=== PATIENT | male | born 1950 | race Caucasian/White ===

== ENCOUNTER 2022-11-09 22:56 | Emergency (ER) | payer MEDICARE, SELFPAY ==
[2022-11-09 23:05] VITALS: BP 165/74; PULSE 88; O2SAT 96
[2022-11-09 23:13] VITALS: BP 165/74; PULSE 83; RESP 16; TEMP 36.8; O2SAT 97; BMI 38.6
--- NOTE | 2022-11-09 23:26 | DI.RAD.S_ITS ---
PROCEDURE: XR CHEST 1V INDICATIONS: chest pain TECHNIQUE: One view of the chest was acquired. COMPARISON: None. FINDINGS: Surgical changes and devices: None. Lungs and pleura: There are confluent right infrahilar opacities consistent with consolidation. Medial left retrocardiac opacities are also demonstrated consistent with atelectasis or consolidation. No pleural effusions or pneumothorax. Mediastinum: Mediastinal contours appear normal. Heart size is normal. Bones and chest wall: No suspicious bony lesions. Overlying soft tissues appear unremarkable. IMPRESSION: 1. Right infrahilar consolidation is nonspecific but suggestive of pneumonia. 2. Left retrocardiac atelectasis or consolidation. Dictated by: Julius Zhou M.D. on 11/10/2022 at 0:23 Approved by: Julius Zhou M.D. on 11/10/2022 at 0:24
--- NOTE | 2022-11-09 23:30 | ED_ITS ---
HPI - Weakness <Kyleigh Moise DO - Last Filed: 11/15/22 01:32> General Chief complaint: Arrhythmia/Palpitations Stated complaint: Nosebleeds, lethargic, slurred speech x6 weeks Time Seen by Provider: 11/09/22 23:30 Source: patient and family Mode of arrival: Ambulatory History of Present Illness HPI Narrative: Patient is 72-year-old male history of diabetes hypertension BPH presenting today with weakness. He was at a [facility] today for mother's day his daughter saw him for the 1st time in 6 months thinks that he is age 20 years since [place]. He reports a variety of symptoms ongoing for number of months. He reports frequent nosebleeds increased weakness. He has some dizziness whenever he stands up, there has been significant weight gain according to daughter he has couple areas of his skin that are pruritic reports that he has a cream he puts on there and it helps. He recently started Flomax for BPH. He denies any significant peripheral edema. He is no chest pain or palpitations. Daughter reports that he has slurring words I do not appreciate any significant aphasia or dysarthria he has no obvious facial droop. He is generalized weakness without focal deficits. Related Data Allergies Allergy/AdvReac Type Severity Reaction Status Date / Time Penicillins Allergy Intermediate Rash Verified 11/10/22 00:47 Review of Systems <DO Tanna Miller Last Filed: 11/15/22 01:32> Review of Systems ROS Unobtainable: All systems reviewed & are unremarkable except as noted in HPI and below Patient History <DO Tanna Miller Last Filed: 11/15/22 01:32> Social History Smoking Status: Former smoker Smoking Status: Former smoker Substance Use Type: does not use Exam <DO Tanna Miller Last Filed: 11/15/22 01:32> Initial Vital Signs Initial Vital Signs: Vital Signs Pulse Rate 88 11/09/22 23:05 Blood Pressure 165/74 H 11/09/22 23:05 Pulse Oximetry 96 11/09/22 23:05 GENERAL: Alert 72-year-old male HEENT: Head atraumatic,EOMI, pupils reactive, face symmetric, [moist] mucous membranes CARDIOVASCULAR: Regular rate and rhythm without murmurs, rubs or gallops. RESPIRATORY: Breath sounds equal bilaterally, no wheezes rales or rhonchi. ABDOMEN: Soft, nontender. Normoactive bowel sounds all 4 quadrants. No guarding or rebound. EXTREMITIES: Normal range of motion, no clubbing or edema. Neurovascularly intact NEUROLOGICAL: Alert and oriented x4.Normal gait and speech. Cranial nerves II through XII grossly intact. [Good [id number], good [id number], strength equal bilaterally, no dysarthria or aphasia, sensation in tact to soft touch bilaterally, no visual changes, no facial droop] SKIN: Warm, dry, no laceration, no petechiae, no rashes or lesions. <Dmitriy Jimenez DO - Last Filed: 11/10/22 18:24> Initial Vital Signs Initial Vital Signs: Vital Signs Pulse Rate 88 11/09/22 23:05 Blood Pressure 165/74 H 11/09/22 23:05 Pulse Oximetry 96 11/09/22 23:05 Course <Kyleigh Moise DO - Last Filed: 11/15/22 01:32> Orders Ordered: Discontinued Medications Aspirin (Aspirin 81 Mg Chew Tab) 324 mg PO NOW ONE Stop: 11/09/22 23:27 Last Admin: 11/09/22 23:55 Dose: Not Given Documented By: PINKY Aspirin (Aspirin 81 Mg Chew Tab) 324 mg PO NOW ONE Stop: 11/10/22 01:50 Last Admin: 11/10/22 02:36 Dose: 324 mg Documented By: BRENT Amiodarone HCl/Dextrose (Nexterone) 360 mg in 200 mls @ 33.333 mls/hr IV NOW ONE; Protocol Stop: 11/10/22 07:39 Last Titration: 11/10/22 08:20 Dose: 0 mls/hr, 0 mls/hr Documented By: Admin: 11/10/22 02:36 Dose: 33.333 mls/hr, 33.33 mls/hr Documented By: BRENT Amiodarone HCl/Dextrose (Nexterone) 150 mg in 100 mls @ 600 mls/hr IV NOW ONE; Protocol Stop: 11/10/22 01:50 Last Infusion: 11/10/22 02:37 Dose: 0 mls/hr Documented By: Admin: 11/10/22 02:24 Dose: 600 mls/hr Documented By: BRENT Amiodarone HCl/Dextrose (Nexterone) 360 mg in 200 mls @ 16.7 mls/hr IV CONT EYAL; Protocol Stop: 11/10/22 20:29 Last Titration: 11/10/22 19:19 Dose: 16.7 mls/hr, 16.7 mls/hr Documented By: Admin: 11/10/22 08:51 Dose: 16.7 mls/hr, 16.7 mls/hr Documented By: RB Amiodarone HCl/Dextrose (Nexterone) 180 mg in 100 mls @ 16.7 mls/hr IV CONT EYAL; Protocol Stop: 11/11/22 01:00 Last Infusion: 11/10/22 19:17 Dose: 0 mls/hr Documented By: Admin: 11/10/22 19:17 Dose: 16.7 mls/hr Documented By: GERALD Metoprolol Succinate (Metoprolol Er 25 Mg Tablet) 25 mg PO NOW ONE Stop: 11/10/22 01:54 Last Admin: 11/10/22 02:33 Dose: 25 mg Documented By: BRENT Metoprolol Succinate (Metoprolol Er 25 Mg Tablet) 25 mg PO BID EYAL Last Admin: 11/10/22 10:03 Dose: Not Given Documented By: GERALD Metoprolol Tartrate (Metoprolol Tartrate 5 Mg/5 Ml Inj) 5 mg IV NOW ONE Stop: 11/10/22 01:43 Last Admin: 11/10/22 01:52 Dose: 5 mg Documented By: BRENT Vital Signs Vital signs: Vital Signs - 8 hr 11/10/22 10:30 11/10/22 10:30 11/10/22 10:45 Pulse Rate 60 Respiratory Rate 19 Blood Pressure 126/67 136/64 Pulse Oximetry 97 11/10/22 10:45 11/10/22 11:00 11/10/22 11:00 Pulse Rate 61 59 L Respiratory Rate 15 Blood Pressure 157/74 H Pulse Oximetry 96 97 11/10/22 11:15 11/10/22 11:15 11/10/22 11:30 Pulse Rate 59 L Respiratory Rate 19 Blood Pressure 149/66 H 149/83 H Pulse Oximetry 95 11/10/22 11:30 11/10/22 11:45 11/10/22 11:45 Pulse Rate 61 59 L Respiratory Rate 18 13 Blood Pressure 154/74 H Pulse Oximetry 97 97 11/10/22 12:00 11/10/22 12:01 11/10/22 12:01 Pulse Rate 66 64 Respiratory Rate 23 21 Blood Pressure 157/72 H Pulse Oximetry 97 97 11/10/22 12:15 11/10/22 12:15 11/10/22 12:30 Pulse Rate 59 L Respiratory Rate 15 Blood Pressure 150/65 H 156/74 H Pulse Oximetry 95 11/10/22 12:30 11/10/22 12:45 11/10/22 13:00 Pulse Rate 64 65 60 Respiratory Rate 13 18 14 Blood Pressure Pulse Oximetry 95 95 95 11/10/22 13:15 11/10/22 13:30 11/10/22 13:45 Pulse Rate 62 60 62 Respiratory Rate 11 L 11 L 12 Blood Pressure Pulse Oximetry 94 94 94 11/10/22 14:00 11/10/22 14:15 11/10/22 14:30 Pulse Rate 63 65 63 Respiratory Rate 12 12 12 Blood Pressure Pulse Oximetry 93 93 94 11/10/22 14:45 11/10/22 15:00 11/10/22 15:15 Pulse Rate 63 64 63 Respiratory Rate 16 20 Blood Pressure Pulse Oximetry 95 95 95 11/10/22 15:30 11/10/22 15:45 11/10/22 16:00 Pulse Rate 68 62 63 Respiratory Rate 20 17 16 Blood Pressure Pulse Oximetry 96 95 94 11/10/22 16:15 11/10/22 16:30 11/10/22 16:45 Pulse Rate 63 68 64 Respiratory Rate 22 13 Blood Pressure Pulse Oximetry 95 96 95 11/10/22 17:00 11/10/22 17:15 11/10/22 17:30 Pulse Rate 67 72 65 Respiratory Rate 12 21 17 Blood Pressure Pulse Oximetry 94 95 94 11/10/22 17:45 11/10/22 18:00 Pulse Rate 65 66 Respiratory Rate 21 17 Blood Pressure Pulse Oximetry 95 94 <Dmitriy Jimenez DO - Last Filed: 11/10/22 18:24> Orders Ordered: Discontinued Medications Aspirin (Aspirin 81 Mg Chew Tab) 324 mg PO NOW ONE Stop: 11/09/22 23:27 Last Admin: 11/09/22 23:55 Dose: Not Given Documented By: SB Aspirin (Aspirin 81 Mg Chew Tab) 324 mg PO NOW ONE Stop: 11/10/22 01:50 Last Admin: 11/10/22 02:36 Dose: 324 mg Documented By: BRENT Amiodarone HCl/Dextrose (Nexterone) 360 mg in 200 mls @ 33.333 mls/hr IV NOW ONE; Protocol Stop: 11/10/22 07:39 Last Titration: 11/10/22 08:20 Dose: 0 mls/hr, 0 mls/hr Documented By: Admin: 11/10/22 02:36 Dose: 33.333 mls/hr, 33.33 mls/hr Documented By: BRENT Amiodarone HCl/Dextrose (Nexterone) 150 mg in 100 mls @ 600 mls/hr IV NOW ONE; Protocol Stop: 11/10/22 01:50 Last Infusion: 11/10/22 02:37 Dose: 0 mls/hr Documented By: Admin: 11/10/22 02:24 Dose: 600 mls/hr Documented By: BRENT Amiodarone HCl/Dextrose (Nexterone) 360 mg in 200 mls @ 16.7 mls/hr IV CONT EYAL ; Protocol Stop: 11/10/22 20:29 Last Titration: 11/10/22 19:19 Dose: 16.7 mls/hr, 16.7 mls/hr Documented By: Admin: 11/10/22 08:51 Dose: 16.7 mls/hr, 16.7 mls/hr Documented By: RB Amiodarone HCl/Dextrose (Nexterone) 180 mg in 100 mls @ 16.7 mls/hr IV CONT EYAL; Protocol Stop: 11/11/22 01:00 Last Infusion: 11/10/22 19:17 Dose: 0 mls/hr Documented By: Admin: 11/10/22 19:17 Dose: 16.7 mls/hr Documented By: RB Metoprolol Succinate (Metoprolol Er 25 Mg Tablet) 25 mg PO NOW ONE Stop: 11/10/22 01:54 Last Admin: 11/10/22 02:33 Dose: 25 mg Documented By: BRENT Metoprolol Succinate (Metoprolol Er 25 Mg Tablet) 25 mg PO BID EYAL Last Admin: 11/10/22 10:03 Dose: Not Given Documented By: RB Metoprolol Tartrate (Metoprolol Tartrate 5 Mg/5 Ml Inj) 5 mg IV NOW ONE Stop: 11/10/22 01:43 Last Admin: 11/10/22 01:52 Dose: 5 mg Documented By: ADIAG Vital Signs Vital signs: Vital Signs - 8 hr 11/10/22 10:30 11/10/22 10:30 11/10/22 10:45 Pulse Rate 60 Respiratory Rate 19 Blood Pressure 126/67 136/64 Pulse Oximetry 97 11/10/22 10:45 11/10/22 11:00 11/10/22 11:00 Pulse Rate 61 59 L Respiratory Rate 15 Blood Pressure 157/74 H Pulse Oximetry 96 97 11/10/22 11:15 11/10/22 11:15 11/10/22 11:30 Pulse Rate 59 L Respiratory Rate 19 Blood Pressure 149/66 H 149/83 H Pulse Oximetry 95 11/10/22 11:30 11/10/22 11:45 11/10/22 11:45 Pulse Rate 61 59 L Respiratory Rate 18 13 Blood Pressure 154/74 H Pulse Oximetry 97 97 11/10/22 12:00 11/10/22 12:01 11/10/22 12:01 Pulse Rate 66 64 Respiratory Rate 23 21 Blood Pressure 157/72 H Pulse Oximetry 97 97 11/10/22 12:15 11/10/22 12:15 11/10/22 12:30 Pulse Rate 59 L Respiratory Rate 15 Blood Pressure 150/65 H 156/74 H Pulse Oximetry 95 11/10/22 12:30 11/10/22 12:45 11/10/22 13:00 Pulse Rate 64 65 60 Respiratory Rate 13 18 14 Blood Pressure Pulse Oximetry 95 95 95 11/10/22 13:15 11/10/22 13:30 11/10/22 13:45 Pulse Rate 62 60 62 Respiratory Rate 11 L 11 L 12 Blood Pressure Pulse Oximetry 94 94 94 11/10/22 14:00 11/10/22 14:15 11/10/22 14:30 Pulse Rate 63 65 63 Respiratory Rate 12 12 12 Blood Pressure Pulse Oximetry 93 93 94 11/10/22 14:45 11/10/22 15:00 11/10/22 15:15 Pulse Rate 63 64 63 Respiratory Rate 16 20 Blood Pressure Pulse Oximetry 95 95 95 11/10/22 15:30 11/10/22 15:45 11/10/22 16:00 Pulse Rate 68 62 63 Respiratory Rate 20 17 16 Blood Pressure Pulse Oximetry 96 95 94 11/10/22 16:15 11/10/22 16:30 11/10/22 16:45 Pulse Rate 63 68 64 Respiratory Rate 22 13 Blood Pressure Pulse Oximetry 95 96 95 11/10/22 17:00 11/10/22 17:15 11/10/22 17:30 Pulse Rate 67 72 65 Respiratory Rate 12 21 17 Blood Pressure Pulse Oximetry 94 95 94 11/10/22 17:45 11/10/22 18:00 Pulse Rate 65 66 Respiratory Rate 21 17 Blood Pressure Pulse Oximetry 95 94 [facility] - Weakness <Kyleigh Moise, - Last Filed: 11/15/22 01:32> Lab Data 11/09/22 23:40 11/09/22 23:40 Labs: Lab Results 11/09/22 11/09/22 11/09/22 Range/Units 23:40 23:40 23:40 WBC 4.5 (4.5-11.0) X10^3/uL RBC 3.51 L (4.5-5.9) X10^6/uL Hgb 11.6 L (13.5-17.5) g/dL Hct 33.0 L (41-53) % MCV 94.1 (80-100) fL MCH 32.9 (26-34) PG MCHC 35.0 (30-36) % RDW 16.8 H (11.6-14.8) % Plt Count 128 L (150-400) X10^3/uL Neut % (Auto) 58.0 (50-75) % Lymph % (Auto) 28.3 (25-40) % Arthur % (Auto) 6.9 (3-14) % Eos % (Auto) 5.4 H (2-4) % Baso % (Auto) 1.4 (0-2) % Neut # (Auto) 2600 (6502-5785) /uL Lymph # (Auto) 1300 (1041-1559) /uL Arthur # (Auto) 300 (0-900) /uL Eos # (Auto) 200 (0-450) /uL Baso # (Auto) 100 (0-100) /uL PT 13.4 H (10.1-12.7) SECONDS INR 1.2 (0.9-1.3) APTT 36 (26-36) SECONDS Sodium 137 (137-145) mmol/L Potassium 3.6 (3.4-5.1) mmol/L Chloride 106 (98-107) mmol/L Carbon Dioxide 24 (22-32) mmol/L BUN 16 (9-20) mg/dL Creatinine 0.84 (0.66-1.25) mg/dL Estimated GFR > 60 (>60) mL/min BUN/Creatinine Ratio 19.0 (6-22) Glucose 170 H (80-110) mg/dL Lactate (0.7-2.1) mmol/L Calcium 10.1 (8.4-10.2) mg/dL Magnesium 2.1 (1.6-2.3) mg/dL Total Bilirubin 1.0 (0.2-1.3) mg/dL AST 106 H (17-59) IU/L ALT 56 H (<50) IU/L Alkaline Phosphatase 196 H (38-126) U/L Total Creatine Kinase 229 H (55-170) U/L CK-MB (CK-2) 3.24 H (<2.37) ng/mL CK-MB (CK-2) Rel Index 1.4 L (1.5-5.0) % Troponin I 0.015 (0.01-0.034) ng/mL NT-Pro-B Natriuret Pep (<125) pg/mL Total Protein 6.8 (6.3-8.2) g/dL Albumin 3.5 (3.5-5.0) g/dL Globulin 3.3 (1.7-4.1) g/dL Albumin/Globulin Ratio 1.1 (1.0-2.8) Lipase 384 H (23-300) U/L Procalcitonin (<0.5) ng/mL TSH (0.47-4.68) uIU/mL U Opiates 300ng/mL cut (Negative) Ur Oxycodone Screen (Negative) Urine Methadone Screen (Negative) Ur Barbiturates Screen (Negative) U Tricyclic Antidepress (Negative) Ur Phencyclidine Scrn (Negative) Ur Amphetamines Screen (Negative) U Methamphetamines Scrn (Negative) Ur MDMA Scrn (Ecstasy) (Negative) U Benzodiazepines Scrn (Negative) Urine Cocaine Screen (Negative) U Marijuana (THC) Screen (Negative) Ethyl Alcohol ( - 10) mg/dL SARS-CoV-2 (PCR) (Negative) 11/09/22 11/09/22 11/09/22 Range/Units 23:40 23:40 23:40 WBC (4.5-11.0) X10^3/uL RBC (4.5-5.9) X10^6/uL Hgb (13.5-17.5) g/dL Hct (41-53) % MCV (80-100) fL MCH (26-34) PG MCHC (30-36) % RDW (11.6-14.8) % Plt Count (150-400) X10^3/uL Neut % (Auto) (50-75) % Lymph % (Auto) (25-40) % Arthur % (Auto) (3-14) % Eos % (Auto) (2-4) % Baso % (Auto) (0-2) % Neut # (Auto) (6415-2227) /uL Lymph # (Auto) (3939-3205) /uL Arthur # (Auto) (0-900) /uL Eos # (Auto) (0-450) /uL Baso # (Auto) (0-100) /uL PT (10.1-12.7) SECONDS INR (0.9-1.3) APTT (26-36) SECONDS Sodium (137-145) mmol/L Potassium (3.4-5.1) mmol/L Chloride (98-107) mmol/L Carbon Dioxide (22-32) mmol/L BUN (9-20) mg/dL Creatinine (0.66-1.25) mg/dL Estimated GFR (>60) mL/min BUN/Creatinine Ratio (6-22) Glucose (80-110) mg/dL Lactate 2.1 (0.7-2.1) mmol/L Calcium (8.4-10.2) mg/dL Magnesium (1.6-2.3) mg/dL Total Bilirubin (0.2-1.3) mg/dL AST (17-59) IU/L ALT (<50) IU/L Alkaline Phosphatase (38-126) U/L Total Creatine Kinase (55-170) U/L CK-MB (CK-2) (<2.37) ng/mL CK-MB (CK-2) Rel Index (1.5-5.0) % Troponin I (0.01-0.034) ng/mL NT-Pro-B Natriuret Pep 27 (<125) pg/mL Total Protein (6.3-8.2) g/dL Albumin (3.5-5.0) g/dL Globulin (1.7-4.1) g/dL Albumin/Globulin Ratio (1.0-2.8) Lipase (23-300) U/L Procalcitonin 0.13 (<0.5) ng/mL TSH (0.47-4.68) uIU/mL U Opiates 300ng/mL cut (Negative) Ur Oxycodone Screen (Negative) Urine Methadone Screen (Negative) Ur Barbiturates Screen (Negative) U Tricyclic Antidepress (Negative) Ur Phencyclidine Scrn (Negative) Ur Amphetamines Screen (Negative) U Methamphetamines Scrn (Negative) Ur MDMA Scrn (Ecstasy) (Negative) U Benzodiazepines Scrn (Negative) Urine Cocaine Screen (Negative) U Marijuana (THC) Screen (Negative) Ethyl Alcohol < 10 ( - 10) mg/dL SARS-CoV-2 (PCR) (Negative) 11/09/22 11/10/22 11/10/22 Range/Units 23:40 00:10 01:01 WBC (4.5-11.0) X10^3/uL RBC (4.5-5.9) X10^6/uL Hgb (13.5-17.5) g/dL Hct (41-53) % MCV (80-100) fL MCH (26-34) PG MCHC (30-36) % RDW (11.6-14.8) % Plt Count (150-400) X10^3/uL Neut % (Auto) (50-75) % Lymph % (Auto) (25-40) % Arthur % (Auto) (3-14) % Eos % (Auto) (2-4) % Baso % (Auto) (0-2) % Neut # (Auto) (1649-1065) /uL Lymph # (Auto) (8405-1033) /uL Arthur # (Auto) (0-900) /uL Eos # (Auto) (0-450) /uL Baso # (Auto) (0-100) /uL PT (10.1-12.7) SECONDS INR (0.9-1.3) APTT (26-36) SECONDS Sodium (137-145) mmol/L Potassium (3.4-5.1) mmol/L Chloride (98-107) mmol/L Carbon Dioxide (22-32) mmol/L BUN (9-20) mg/dL Creatinine (0.66-1.25) mg/dL Estimated GFR (>60) mL/min BUN/Creatinine Ratio (6-22) Glucose (80-110) mg/dL Lactate (0.7-2.1) mmol/L Calcium (8.4-10.2) mg/dL Magnesium (1.6-2.3) mg/dL Total Bilirubin (0.2-1.3) mg/dL AST (17-59) IU/L ALT (<50) IU/L Alkaline Phosphatase (38-126) U/L Total Creatine Kinase (55-170) U/L CK-MB (CK-2) (<2.37) ng/mL CK-MB (CK-2) Rel Index (1.5-5.0) % Troponin I (0.01-0.034) ng/mL NT-Pro-B Natriuret Pep (<125) pg/mL Total Protein (6.3-8.2) g/dL Albumin (3.5-5.0) g/dL Globulin (1.7-4.1) g/dL Albumin/Globulin Ratio (1.0-2.8) Lipase (23-300) U/L Procalcitonin (<0.5) ng/mL TSH 1.49 (0.47-4.68) uIU/mL U Opiates 300ng/mL cut Negative (Negative) Ur Oxycodone Screen Negative (Negative) Urine Methadone Screen Negative (Negative) Ur Barbiturates Screen Negative (Negative) U Tricyclic Antidepress Positive H (Negative) Ur Phencyclidine Scrn Negative (Negative) Ur Amphetamines Screen Negative (Negative) U Methamphetamines Scrn Negative (Negative) Ur MDMA Scrn (Ecstasy) Negative (Negative) U Benzodiazepines Scrn Negative (Negative) Urine Cocaine Screen Negative (Negative) U Marijuana (THC) Screen Negative (Negative) Ethyl Alcohol ( - 10) mg/dL SARS-CoV-2 (PCR) Negative (Negative) 11/10/22 Range/Units 04:08 WBC (4.5-11.0) X10^3/uL RBC (4.5-5.9) X10^6/uL Hgb (13.5-17.5) g/dL Hct (41-53) % MCV (80-100) fL MCH (26-34) PG MCHC (30-36) % RDW (11.6-14.8) % Plt Count (150-400) X10^3/uL Neut % (Auto) (50-75) % Lymph % (Auto) (25-40) % Arthur % (Auto) (3-14) % Eos % (Auto) (2-4) % Baso % (Auto) (0-2) % Neut # (Auto) (6245-3298) /uL Lymph # (Auto) (8848-3560) /uL Arthur # (Auto) (0-900) /uL Eos # (Auto) (0-450) /uL Baso # (Auto) (0-100) /uL PT (10.1-12.7) SECONDS INR (0.9-1.3) APTT (26-36) SECONDS Sodium (137-145) mmol/L Potassium (3.4-5.1) mmol/L Chloride (98-107) mmol/L Carbon Dioxide (22-32) mmol/L BUN (9-20) mg/dL Creatinine (0.66-1.25) mg/dL Estimated GFR (>60) mL/min BUN/Creatinine Ratio (6-22) Glucose (80-110) mg/dL Lactate (0.7-2.1) mmol/L Calcium (8.4-10.2) mg/dL Magnesium (1.6-2.3) mg/dL Total Bilirubin (0.2-1.3) mg/dL AST (17-59) IU/L ALT (<50) IU/L Alkaline Phosphatase (38-126) U/L Total Creatine Kinase (55-170) U/L CK-MB (CK-2) (<2.37) ng/mL CK-MB (CK-2) Rel Index (1.5-5.0) % Troponin I 0.017 (0.01-0.034) ng/mL NT-Pro-B Natriuret Pep (<125) pg/mL Total Protein (6.3-8.2) g/dL Albumin (3.5-5.0) g/dL Globulin (1.7-4.1) g/dL Albumin/Globulin Ratio (1.0-2.8) Lipase (23-300) U/L Procalcitonin (<0.5) ng/mL TSH (0.47-4.68) uIU/mL U Opiates 300ng/mL cut (Negative) Ur Oxycodone Screen (Negative) Urine Methadone Screen (Negative) Ur Barbiturates Screen (Negative) U Tricyclic Antidepress (Negative) Ur Phencyclidine Scrn (Negative) Ur Amphetamines Screen (Negative) U Methamphetamines Scrn (Negative) Ur MDMA Scrn (Ecstasy) (Negative) U Benzodiazepines Scrn (Negative) Urine Cocaine Screen (Negative) U Marijuana (THC) Screen (Negative) Ethyl Alcohol ( - 10) mg/dL SARS-CoV-2 (PCR) (Negative) Urine Dip Bedside Urine Glucose Negative Bedside Urine Bilirubin - Negative Bedside Urine Ketone - Negative Urine Specific West 1.010 Bedside Urine Occult Blood - Negative Bedside Urine pH 6.0 Bedside Urine Protein - Negative Bedside Urine Urobilinogen - Negative Bedside Urine Nitrite - Negative Bedside Urine Leukocytes - Negative Esterase Imaging Data CTA - brain/neck: Radiologist Impression: PROCEDURE:? CT ANGIO HEAD AND NECK ? INDICATIONS:? slurring speech x weeks ? TECHNIQUE:? Pre-contrast 4.5 mm thick sections acquired from the foramen magnum to the vertex.? After the administration of intravenous contrast, 1 mm thick sections acquired from the aortic arch through the [place] of [place].? Post-contrast 4.5 mm thick sections then re-acquired from the foramen magnum to the vertex.? 3-dimensional rtqlewn-jjxfmvtif-vyghvcemak (MIP) and/or volume rendering reformats were acquired of the central intracranial vasculature and neck separately. For radiation dose reduction, the following was used:? automated exposure control, adjustment of mA and/or kV according to patient size.? ? COMPARISON:? None. ? FINDINGS:? Image quality:? Excellent.? ? BRAIN:? CSF spaces:? Basal cisterns are patent.? No extra-axial fluid collections.? Ventricles are normal in size and shape.? ? Brain:? No intracranial hemorrhage, mass, or mass effect.? Harris-white matter interface appears preserved.? No abnormal intracranial enhancement.? ? Skull and face:? Calvarium and facial bones appear intact, without suspicious lesions.? Orbits appear normal.? ? Sinuses:? Sinuses and mastoids are clear.? ? HEAD CT ANGIOGRAPHY:? Anterior circulation:? Intracranial internal carotid arteries are normal in size and appear patent bilaterally.? There is mild atherosclerotic calcification along the cavernous segments of the internal carotid arteries.? The paired anterior cerebral arteries appear patent bilaterally.? The anterior communicating artery also appears patent. The middle cerebral arteries appear patent bilaterally.? No high-grade stenosis, occlusion, or filling defects.? No cerebral aneurysms identified. ? Posterior circulation:? Visualized portions of the vertebral arteries appear patent and join to form a patent basilar artery.? There is focal calcified plaque in the distal left vertebral artery with associated moderate narrowing.? The left posterior cerebral artery is markedly diminutive with moderate to severe multifocal narrowing along its c ourse proximally in the P1 and P2 segments. ? NECK CT ANGIOGRAPHY:? Carotid system:? The great vessels demonstrate a conventional anatomy as they arise from the aortic arch.? The origins of the common carotid arteries appear patent.? The common carotid arteries demonstrate normal caliber and courses.? There is calcified plaque in the carotid bulbs with narrowing of greater than 70% in the left and right bulbs.? The internal carotid arteries demonstrate normal calibers and courses.? ? Posterior circulation:? The origins of the vertebral arteries both appear patent.? The more superior extracranial portions of both vertebral arteries also demonstrate normal courses and calibers.? They join to form a patent basilar artery.? ? Soft tissues:? Visualized neck soft tissues demonstrate no suspicious abnormalities.? ? Bones:? No suspicious bony lesions.? Visualized cervical spine demonstrates stra ightening of the cervical lordosis.? There is multilevel degenerative disc disease and facet joint arthropathy.? ? ? IMPRESSION:? ? 1. No acute intracranial abnormality. ? 2. Markedly diminutive left [employer]ERATION INSULATOR with moderate to severe multifocal narrowing along its P1 and P2 segments. ? 3. Bilateral calcified plaque in the carotid bulbs with narrowing of greater than 70%. ? Any quantitative measurements of stenosis were performed using NASCET criteria.? ? ? Dictated by: Julius Zhou M.D. on 11/10/2022 at 1:46 ? ? Chest x-ray: Radiologist Impression: PROCEDURE:? XR CHEST 1V ? INDICATIONS:? chest pain ? TECHNIQUE:? One view of the chest was acquired.? ? COMPARISON:? None. ? FINDINGS:? ? Surgical changes and devices:? None.? ? Lungs and pleura:? There are confluent right infrahilar opacities consistent with consolidation.? Medial left retrocardiac opacities are also demonstrated consistent with atelectasis or consolidation.? No pleural effusions or pneumothorax.? ? Mediastinum:? Mediastinal contours appear normal.? Heart size is normal.? ? Bones and chest wall:? No suspicious bony lesions.? Overlying soft tissues appear unremarkable.? ? IMPRESSION:? ? 1.? Right infrahilar consolidation is nonspecific but suggestive of pneumonia. ? 2. Left retrocardiac atelectasis or consolidation.? ? ? Dictated by: Julius Zhou M.D. on 11/10/2022 at 0:23 ECG Data Interpretation: Normal sinus rhythm rate 83 UT interval 170 QRS [address] changes EKG 2. Sinus rhythm rate 79 UT interval 174 QRS 118 QTC 472 PVCs noted MDM Narrative Medical decision making narrative: Patient is a 72-year-old male history of diabetes presenting today with generalized weakness. He is experiencing some dizziness when he stands up daughter reports significant weight gain. No significant falls or syncopal episodes. LABS no leukocytosis or anemia or thrombocytopenia, no electrolyte abnormality no PRAKASH glucose 170 magnesium 2.1, he is found have elevated liver enzymes and alk-phos, he has AST of 106 ALT 56 alk-phos 196 with a total bilirubin of 1.0. This is thought to psych be due to fatty liver. He has no right upper quadrant pain no epigastric pain no nausea vomiting or any other symptoms. Lipase is also 336. Without pain nausea or vomiting I do not suspect cholelithiasis cholecystitis or choledocholithiasis imaging can be done as an outpatient if needed. CT angio does not show any acute acute hemorrhage or acute mass. There is narrowing along the left [employer] P1 and P2 segments. Also there is bilateral calcified plaque greater than 70%. Patient is symptomatic with some lig htheadedness upon standing. Chest x-ray shows right infrahilar consolidation suggestive of pneumonia. However patient has no cough or fever or chest pain or symptoms suggestive of pneumonia. Patient had got no block to the restroom gave a sample walk back he was hooked back up to the monitor resting talking with his brother when he had a 12-15 second run of V-tach. He was completely asymptomatic he thought he maybe had a little bit more slurring of his speech but no chest pain palpitations dizziness or syncopal episode. Dr. Contreras on-call cardiology has been updated patient's symptoms test results. Recommended starting with IV Lopressor and p.o. Lopressor. He reports try this 1st if he continues to have runs of V-tach than start him on an amiodarone drip and follow the protocol. Unfortunately [facility] does not have any beds due to significant nursing shortage. Patient is on multiple this hopefully [facility] have beds this morning. Signed out to Dr. Painting her <Dmitriy Jimenez DO - Last Filed: 11/10/22 18:24> Lab Data Labs: Lab Results 11/09/22 11/09/22 11/09/22 Range/Units 23:40 23:40 23:40 WBC 4.5 (4.5-11.0) X10^3/uL RBC 3.51 L (4.5-5.9) X10^6/uL Hgb 11.6 L (13.5-17.5) g/dL Hct 33.0 L (41-53) % MCV 94.1 (80-100) fL MCH 32.9 (26-34) PG MCHC 35.0 (30-36) % RDW 16.8 H (11.6-14.8) % Plt Count 128 L (150-400) X10^3/uL Neut % (Auto) 58.0 (50-75) % Lymph % (Auto) 28.3 (25-40) % Arthur % (Auto) 6.9 (3-14) % Eos % (Auto) 5.4 H (2-4) % Baso % (Auto) 1.4 (0-2) % Neut # (Auto) 2600 (2203-1587) /uL Lymph # (Auto) 1300 (9110-0023) /uL Arthur # (Auto) 300 (0-900) /uL Eos # (Auto) 200 (0-450) /uL Baso # (Auto) 100 (0-100) /uL PT 13.4 H (10.1-12.7) SECONDS INR 1.2 (0.9-1.3) APTT 36 (26-36) SECONDS Sodium 137 (137-145) mmol/L Potassium 3.6 (3.4-5.1) mmol/L Chloride 106 (98-107) mmol/L Carbon Dioxide 24 (22-32) mmol/L BUN 16 (9-20) mg/dL Creatinine 0.84 (0.66-1.25) mg/dL Estimated GFR > 60 (>60) mL/min BUN/Creatinine Ratio 19.0 (6-22) Glucose 170 H (80-110) mg/dL Lactate (0.7-2.1) mmol/L Calcium 10.1 (8.4-10.2) mg/dL Magnesium 2.1 (1.6-2.3) mg/dL Total Bilirubin 1.0 (0.2-1.3) mg/dL AST 106 H (17-59) IU/L ALT 56 H (<50) IU/L Alkaline Phosphatase 196 H (38-126) U/L Total Creatine Kinase 229 H (55-170) U/L CK-MB (CK-2) 3.24 H (<2.37) ng/mL CK-MB (CK-2) Rel Index 1.4 L (1.5-5.0) % Troponin I 0.015 (0.01-0.034) ng/mL NT-Pro-B Natriuret Pep (<125) pg/mL Total Protein 6.8 (6.3-8.2) g/dL Albumin 3.5 (3.5-5.0) g/dL Globulin 3.3 (1.7-4.1) g/dL Albumin/Globulin Ratio 1.1 (1.0-2.8) Lipase 384 H (23-300) U/L Procalcitonin (<0.5) ng/mL TSH (0.47-4.68) uIU/mL U Opiates 300ng/mL cut (Negative) Ur Oxycodone Screen (Negative) Urine Methadone Screen (Negative) Ur Barbiturates Screen (Negative) U Tricyclic Antidepress (Negative) Ur Phencyclidine Scrn (Negative) Ur Amphetamines Screen (Negative) U Methamphetamines Scrn (Negative) Ur MDMA Scrn (Ecstasy) (Negative) U Benzodiazepines Scrn (Negative) Urine Cocaine Screen (Negative) U Marijuana (THC) Screen (Negative) Ethyl Alcohol ( - 10) mg/dL SARS-CoV-2 (PCR) (Negative) 11/09/22 11/09/22 11/09/22 Range/Units 23:40 23:40 23:40 WBC (4.5-11.0) X10^3/uL RBC (4.5-5.9) X10^6/uL Hgb (13.5-17.5) g/dL Hct (41-53) % MCV (80-100) fL MCH (26-34) PG MCHC (30-36) % RDW (11.6-14.8) % Plt Count (150-400) X10^3/uL Neut % (Auto) (50-75) % Lymph % (Auto) (25-40) % Arthur % (Auto) (3-14) % Eos % (Auto) (2-4) % Baso % (Auto) (0-2) % Neut # (Auto) (8699-2535) /uL Lymph # (Auto) (9900-8581) /uL Arthur # (Auto) (0-900) /uL Eos # (Auto) (0-450) /uL Baso # (Auto) (0-100) /uL PT (10.1-12.7) SECONDS INR (0.9-1.3) APTT (26-36) SECONDS Sodium (137-145) mmol/L Potassium (3.4-5.1) mmol/L Chloride (98-107) mmol/L Carbon Dioxide (22-32) mmol/L BUN (9-20) mg/dL Creatinine (0.66-1.25) mg/dL Estimated GFR (>60) mL/min BUN/Creatinine Ratio (6-22) Glucose (80-110) mg/dL Lactate 2.1 (0.7-2.1) mmol/L Calcium (8.4-10.2) mg/dL Magnesium (1.6-2.3) mg/dL Total Bilirubin (0.2-1.3) mg/dL AST (17-59) IU/L ALT (<50) IU/L Alkaline Phosphatase (38-126) U/L Total Creatine Kinase (55-170) U/L CK-MB (CK-2) (<2.37) ng/mL CK-MB (CK-2) Rel Index (1.5-5.0) % Troponin I (0.01-0.034) ng/mL NT-Pro-B Natriuret Pep 27 (<125) pg/mL Total Protein (6.3-8.2) g/dL Albumin (3.5-5.0) g/dL Globulin (1.7-4.1) g/dL Albumin/Globulin Ratio (1.0-2.8) Lipase (23-300) U/L Procalcitonin 0.13 (<0.5) ng/mL TSH (0.47-4.68) uIU/mL U Opiates 300ng/mL cut (Negative) Ur Oxycodone Screen (Negative) Urine Methadone Screen (Negative) Ur Barbiturates Screen (Negative) U Tricyclic Antidepress (Negative) Ur Phencyclidine Scrn (Negative) Ur Amphetamines Screen (Negative) U Methamphetamines Scrn (Negative) Ur MDMA Scrn (Ecstasy) (Negative) U Benzodiazepines Scrn (Negative) Urine Cocaine Screen (Negative) U Marijuana (THC) Screen (Negative) Ethyl Alcohol < 10 ( - 10) mg/dL SARS-CoV-2 (PCR) (Negative) 11/09/22 11/10/22 11/10/22 Range/Units 23:40 00:10 01:01 WBC (4.5-11.0) X10^3/uL RBC (4.5-5.9) X10^6/uL Hgb (13.5-17.5) g/dL Hct (41-53) % MCV (80-100) fL MCH (26-34) PG MCHC (30-36) % RDW (11.6-14.8) % Plt Count (150-400) X10^3/uL Neut % (Auto) (50-75) % Lymph % (Auto) (25-40) % Arthur % (Auto) (3-14) % Eos % (Auto) (2-4) % Baso % (Auto) (0-2) % Neut # (Auto) (8349-8629) /uL Lymph # (Auto) (5031-2255) /uL Arthur # (Auto) (0-900) /uL Eos # (Auto) (0-450) /uL Baso # (Auto) (0-100) /uL PT (10.1-12.7) SECONDS INR (0.9-1.3) APTT (26-36) SECONDS Sodium (137-145) mmol/L Potassium (3.4-5.1) mmol/L Chloride (98-107) mmol/L Carbon Dioxide (22-32) mmol/L BUN (9-20) mg/dL Creatinine (0.66-1.25) mg/dL Estimated GFR (>60) mL/min BUN/Creatinine Ratio (6-22) Glucose (80-110) mg/dL Lactate (0.7-2.1) mmol/L Calcium (8.4-10.2) mg/dL Magnesium (1.6-2.3) mg/dL Total Bilirubin (0.2-1.3) mg/dL AST (17-59) IU/L ALT (<50) IU/L Alkaline Phosphatase (38-126) U/L Total Creatine Kinase (55-170) U/L CK-MB (CK-2) (<2.37) ng/mL CK-MB (CK-2) Rel Index (1.5-5.0) % Troponin I (0.01-0.034) ng/mL NT-Pro-B Natriuret Pep (<125) pg/mL Total Protein (6.3-8.2) g/dL Albumin (3.5-5.0) g/dL Globulin (1.7-4.1) g/dL Albumin/Globulin Ratio (1.0-2.8) Lipase (23-300) U/L Procalcitonin (<0.5) ng/mL TSH 1.49 (0.47-4.68) uIU/mL U Opiates 300ng/mL cut Negative (Negative) Ur Oxycodone Screen Negative (Negative) Urine Methadone Screen Negative (Negative) Ur Barbiturates Screen Negative (Negative) U Tricyclic Antidepress Positive H (Negative) Ur Phencyclidine Scrn Negative (Negative) Ur Amphetamines Screen Negative (Negative) U Methamphetamines Scrn Negative (Negative) Ur MDMA Scrn (Ecstasy) Negative (Negative) U Benzodiazepines Scrn Negative (Negative) Urine Cocaine Screen Negative (Negative) U Marijuana (THC) Screen Negative (Negative) Ethyl Alcohol ( - 10) mg/dL SARS-CoV-2 (PCR) Negative (Negative) 11/10/22 Range/Units 04:08 WBC (4.5-11.0) X10^3/uL RBC (4.5-5.9) X10^6/uL Hgb (13.5-17.5) g/dL Hct (41-53) % MCV (80-100) fL MCH (26-34) PG MCHC (30-36) % RDW (11.6-14.8) % Plt Count (150-400) X10^3/uL Neut % (Auto) (50-75) % Lymph % (Auto) (25-40) % Arthur % (Auto) (3-14) % Eos % (Auto) (2-4) % Baso % (Auto) (0-2) % Neut # (Auto) (5127-3254) /uL Lymph # (Auto) (1752-6821) /uL Arthur # (Auto) (0-900) /uL Eos # (Auto) (0-450) /uL Baso # (Auto) (0-100) /uL PT (10.1-12.7) SECONDS INR (0.9-1.3) APTT (26-36) SECONDS Sodium (137-145) mmol/L Potassium (3.4-5.1) mmol/L Chloride (98-107) mmol/L Carbon Dioxide (22-32) mmol/L BUN (9-20) mg/dL Creatinine (0.66-1.25) mg/dL Estimated GFR (>60) mL/min BUN/Creatinine Ratio (6-22) Glucose (80-110) mg/dL Lactate (0.7-2.1) mmol/L Calcium (8.4-10.2) mg/dL Magnesium (1.6-2.3) mg/dL Total Bilirubin (0.2-1.3) mg/dL AST (17-59) IU/L ALT (<50) IU/L Alkaline Phosphatase (38-126) U/L Total Creatine Kinase (55-170) U/L CK-MB (CK-2) (<2.37) ng/mL CK-MB (CK-2) Rel Index (1.5-5.0) % Troponin I 0.017 (0.01-0.034) ng/mL NT-Pro-B Natriuret Pep (<125) pg/mL Total Protein (6.3-8.2) g/dL Albumin (3.5-5.0) g/dL Globulin (1.7-4.1) g/dL Albumin/Globulin Ratio (1.0-2.8) Lipase (23-300) U/L Procalcitonin (<0.5) ng/mL TSH (0.47-4.68) uIU/mL U Opiates 300ng/mL cut (Negative) Ur Oxycodone Screen (Negative) Urine Methadone Screen (Negative) Ur Barbiturates Screen (Negative) U Tricyclic Antidepress (Negative) Ur Phencyclidine Scrn (Negative) Ur Amphetamines Screen (Negative) U Methamphetamines Scrn (Negative) Ur MDMA Scrn (Ecstasy) (Negative) U Benzodiazepines Scrn (Negative) Urine Cocaine Screen (Negative) U Marijuana (THC) Screen (Negative) Ethyl Alcohol ( - 10) mg/dL SARS-CoV-2 (PCR) (Negative) Urine Dip Bedside Urine Glucose Negative Bedside Urine Bilirubin - Negative Bedside Urine Ketone - Negative Urine Specific West 1.010 Bedside Urine Occult Blood - Negative Bedside Urine pH 6.0 Bedside Urine Protein - Negative Bedside Urine Urobilinogen - Negative Bedside Urine Nitrite - Negative Bedside Urine Leukocytes - Negative Esterase MDM Narrative Medical decision making narrative: Patient is a 72-year-old male history of diabetes presenting today with generalized weakness. He is experiencing some dizziness when he stands up daughter reports significant weight gain. No significant falls or syncopal episodes. LABS no leukocytosis or anemia or thrombocytopenia, no electrolyte abnormality no PRAKASH glucose 170 magnesium 2.1, he is found have elevated liver enzymes and alk-phos, he has AST of 106 ALT 56 alk-phos 196 with a total bilirubin of 1.0. This is thought to psych be due to fatty liver. He has no right upper quadrant pain no epigastric pain no nausea vomiting or any other symptoms. Lipase is also 336. Without pain nausea or vomiting I do not suspect cholelithiasis cholecystitis or choledocholithiasis imaging can be done as an outpatient if needed. CT angio does not show any acute acute hemorrhage or acute mass. There is narrowing along the left [employer]ER[employer] INSULATOR P1 and P2 segments. Also there is bilateral calcified plaque greater than 70%. Patient is symptomatic with some lightheadedness upon standing. Chest x-ray shows right infrahilar consolidation suggestive of pneumonia. However patient has no cough or fever or chest pain or symptoms suggestive of pneumonia. Patient had got no block to the restroom gave a sample walk back he was hooked back up to the monitor resting talking with his brother when he had a 12-15 second run of V-tach. He was completely asymptomatic he thought he maybe had a little bit more slurring of his speech but no chest pain palpitations dizziness or syncopal episode. Dr. Contreras on-call cardiology has been updated patient's symptoms test results. Recommended starting with IV Lopressor and p.o. Lopressor. He reports try this 1st if he continues to have runs of V-tach than start him on an amiodarone drip and follow the protocol. Unfortunately [facility] does not have any beds due to significant nursing shortage. Patient is on multiple this hopefully [facility] have beds this morning. Signed out to Dr. Barbara jimenez: Received turned over. Reviewed patient's history and physical exam. Patient is on an amiodarone drip. This started prior to my assumption of care. Has had no further ectopy. Discussed the case with Dr. Aguilar with cardiology at [facility] who accepts the patient transfer. Patient was stable for transport. Discharge Plan Departure Patient Disposition: [facility] Clinical Impression: Ventricular tachycardia
[2022-11-09 23:43] VITALS: PULSE 81; O2SAT 97
[2022-11-09 23:54] LABS: Add Manual Diff / Slide Review NO; Basophils Absolute Auto 100 /uL (0-100); Basophils Percent Auto 1.4 % (0-2); Eosinophils Absolute Auto 200 /uL (0-450); Eosinophils Percent Auto 5.4 % (2-4); Hemoglobin 11.6 g/dL (13.5-17.5); Lymphocytes Absolute Auto 1300 /uL (1100-4500); Lymphocytes Percent Auto 28.3 % (25-40); Mean Corpuscular Hemoglobin 32.9 PG (26-34); Mean Corpuscular Volume 94.1 fL (80-100); Monocytes Absolute Auto 300 /uL (0-900); Monocytes Percent Auto 6.9 % (3-14); Neutrophils Absolute Auto 2600 /uL (1500-7000); Platelet Count 128 X10^3/uL (150-400); Red Blood Cell Count 3.51 X10^6/uL (4.5-5.9); Red Cell Distribution Width 16.8 % (11.6-14.8); White Blood Cell Count 4.5 X10^3/uL (4.5-11.0)
[2022-11-10] VITALS (70 sets, daily range): BP systolic 92–172; BP diastolic 51–83; PULSE 55–84; RESP 10–28; O2SAT 93–98
[2022-11-10] LABS: INR 1.2 (0.9-1.3); Prothrombin Time 13.4 SECONDS (10.1-12.7)
[2022-11-10 00:02] LABS: PTT Partial Thromboplastin Tim 36 SECONDS (26-36)
[2022-11-10 00:04] LABS: Alanine Aminotransferase 56 IU/L (<50); Albumin 3.5 g/dL (3.5-5.0); Albumin Globulin Ratio 1.1 (1.0-2.8); Alkaline Phosphatase 196 U/L (38-126); Aspartate Aminotransferase 106 IU/L (17-59); Blood Urea Nitrogen 16 mg/dL (9-20); Calcium 10.1 mg/dL (8.4-10.2); Carbon Dioxide 24 mmol/L (22-32); Chloride 106 mmol/L (98-107); Creatine Kinase 229 U/L (55-170); Estimated Glomerular Filt Rate > 60 mL/min (>60); Globulin 3.3 g/dL (1.7-4.1); Glucose 170 mg/dL (80-110); Lipase 384 U/L (23-300); Magnesium 2.1 mg/dL (1.6-2.3); Potassium 3.6 mmol/L (3.4-5.1); Sodium 137 mmol/L (137-145); Total Protein 6.8 g/dL (6.3-8.2)
[2022-11-10 00:05] LABS: Ethanol (ETOH) < 10 mg/dL; Lactate (Lactic Acid) 2.1 mmol/L (0.7-2.1)
--- NOTE | 2022-11-10 00:06 | PC.NURSE ---
Pt face is bright red and chest. Per brother pt is not usually this red and has been for a while. Daughter reports he was jaundice earlier. Pt was at [facility] earlier today. Placed CO monitor on patient. CO readout of 3. Pt is former smoker.
[2022-11-10 00:16] LABS: Troponin I 0.015 ng/mL (0.01-0.034)
[2022-11-10 00:19] LABS: CKMB % Relative Index 1.4 % (1.5-5.0); Creatine Kinase MB 3.24 ng/mL (<2.37); HEMOLYSIS 31 (0-50)
[2022-11-10 00:21] LABS: Procalcitonin 0.13 ng/mL (<0.5)
--- NOTE | 2022-11-10 00:21 | DI.CT.S_ITS ---
PROCEDURE: CT ANGIO HEAD AND NECK INDICATIONS: slurring speech x weeks TECHNIQUE: Pre-contrast 4.5 mm thick sections acquired from the foramen magnum to the vertex. After the administration of intravenous contrast, 1 mm thick sections acquired from the aortic arch through the [place]. Post-contrast 4.5 mm thick sections then re-acquired from the foramen magnum to the vertex. 3-dimensional vwlbcqi-mnspzkdvm-enrkuywioj (MIP) and/or volume rendering reformats were acquired of the central intracranial vasculature and neck separately. For radiation dose reduction, the following was used: automated exposure control, adjustment of mA and/or kV according to patient size. COMPARISON: None. FINDINGS: Image quality: Excellent. BRAIN: CSF spaces: Basal cisterns are patent. No extra-axial fluid collections. Ventricles are normal in size and shape. Brain: No intracranial hemorrhage, mass, or mass effect. Harris-white matter interface appears preserved. No abnormal intracranial enhancement. Skull and face: Calvarium and facial bones appear intact, without suspicious lesions. Orbits appear normal. Sinuses: Sinuses and mastoids are clear. HEAD CT ANGIOGRAPHY: Anterior circulation: Intracranial internal carotid arteries are normal in size and appear patent bilaterally. There is mild atherosclerotic calcification along the cavernous segments of the internal carotid arteries. The paired anterior cerebral arteries appear patent bilaterally. The anterior communicating artery also appears patent. The middle cerebral arteries appear patent bilaterally. No high-grade stenosis, occlusion, or filling defects. No cerebral aneurysms identified. Posterior circulation: Visualized portions of the vertebral arteries appear patent and join to form a patent basilar artery. There is focal calcified plaque in the distal left vertebral artery with associated moderate narrowing. The left posterior cerebral artery is markedly diminutive with moderate to severe multifocal narrowing along its course proximally in the P1 and P2 segments. NECK CT ANGIOGRAPHY: Carotid system: The great vessels demonstrate a conventional anatomy as they arise from the aortic arch. The origins of the common carotid arteries appear patent. The common carotid arteries demonstrate normal caliber and courses. There is calcified plaque in the carotid bulbs with narrowing of greater than 70% in the left and right bulbs. The internal carotid arteries demonstrate normal calibers and courses. Posterior circulation: The origins of the vertebral arteries both appear patent. The more superior extracranial portions of both vertebral arteries also demonstrate normal courses and calibers. They join to form a patent basilar artery. Soft tissues: Visualized neck soft tissues demonstrate no suspicious abnormalities. Bones: No suspicious bony lesions. Visualized cervical spine demonstrates straightening of the cervical lordosis. There is multilevel degenerative disc disease and facet joint arthropathy. IMPRESSION: 1. No acute intracranial abnormality. 2. Markedly diminutive left [employer] with moderate to severe multifocal narrowing along its P1 and P2 segments. 3. Bilateral calcified plaque in the carotid bulbs with narrowing of greater than 70%. Any quantitative measurements of stenosis were performed using NASCET criteria. Dictated by: Julius Zhou M.D. on 11/10/2022 at 1:46 Approved by: Julius Zhou M.D. on 11/10/2022 at 1:54
[2022-11-10 00:45] LABS: COVID19 -Nasal RAPID Negative (Negative)
[2022-11-10 00:54] LABS: NT-proBNP (BNP-Adult 18+) 27 pg/mL (<125)
--- NOTE | 2022-11-10 01:03 | PC.NURSE ---
Pt ambulates to bathroom on his own accord. Steady on feet, denies dizziness.
[2022-11-10 01:10] LABS: Ur Creatinine Normal (Normal); Ur Specific Gravity Normal (Normal); Urine Tetrahydrocannabinol Negative (Negative); Urine pH Normal (Normal)
[2022-11-10 01:16] LABS: Thyroid Stimulating Hormone 1.49 uIU/mL (0.47-4.68)
[2022-11-10 01:26] LABS: UR Morphine/Opiate cutoff 300 Negative (Negative); Urine Amphetamines Negative (Negative); Urine Barbiturates Negative (Negative); Urine Benzodiazepines Negative (Negative); Urine Cocaine Negative (Negative); Urine MDMA Negative (Negative); Urine Methadone Negative (Negative); Urine Methamphetamines Negative (Negative); Urine Oxycodone Negative (Negative); Urine Phencyclidine Negative (Negative); Urine Tricyclic Antidepressant Positive (Negative)
--- NOTE | 2022-11-10 01:34 | PC.NURSE ---
Addendum entered by Brandy Morgan R.N. 11/10/22 01:40: Provider at bedside. Original Note: Pt had 15 second run of VTAC, pt alert and oriented during that time. Pt denied any chest pain or dizziness at this time. states he felt like his words were slurred during this time.
[2022-11-10 01:46] LABS: Reflexed Lactate in 2 Hours Y
[2022-11-10] MEDS: METOPROLOL TARTRATE 5 MG/5 ML INJ IV (01:52)
[2022-11-10] MEDS: AMIODARONE 150 MG/100 ML PIGGYBACK 600 MG IV (02:24)
[2022-11-10] MEDS: METOPROLOL ER 25 MG TABLET PO (02:33)
[2022-11-10] MEDS: ASPIRIN 81 MG CHEW TAB 324 MG PO (02:36)
[2022-11-10] MEDS: AMIODARONE 360 MG/200 ML PIGGYBACK 33.33 MG IV (02:36)
--- NOTE | 2022-11-10 04:21 | PC.NURSE ---
Hospitals called for Transfer: [facility], [facility], [facility], . All facilities are short staff or have no beds at this time 0430. All facilities stated to follow up after shift change to see if there is any availability
[2022-11-10 04:29] LABS: Troponin I 0.017 ng/mL (0.01-0.034)
[2022-11-10] MEDS: AMIODARONE 360 MG/200 ML PIGGYBACK 16.7 MG IV (08:51)
--- NOTE | 2022-11-10 10:04 | PC.NURSE ---
9am dose of Metoprolol ER 25 mg held due to patient pulse being below 60. Provider Dr. Jimenez informed of patient blood pressure and pulse and gave verbal order to hold this medication for this patient.
[2022-11-10] MEDS: AMIODARONE 180 MG/100 ML PIGGYBACK 16.7 MG IV (19:17)
== END 2022-11-10 19:28 | disposition short-term general hospital (02) ==
PROVIDERS: Emergency Medicine; Emergency Provider Emergency Medicine
DX: I47.20 Ventricular tachycardia, unspecified (principal); R07.9 Chest pain, unspecified; R42 Dizziness and giddiness; R63.5 Abnormal weight gain; Z20.822 Contact with and (suspected) exposure to COVID-19
CPT/HCPCS: 36415; 70496; 70498; 71045; 80053; 80305; 80320; 81003; 82550; 82553; 83605; 83690; 83735; 83880; 84145; 84443; 84484; 85025; 85610; 85730; 87635; 93005; 96365; 96366; 96375; 99285; C9803; J0282; Q9967

== ENCOUNTER 2023-10-15 13:41 | Day surgery (SDC) | payer MEDICARE, SELFPAY ==
--- NOTE | 2023-10-15 | PATH_ITS ---
[facility] Accession Number: [id number] No. of containers..03 Tissue . 01 Material submitted: . PART A: cecum - CECAL POLYP PART B: APPENDICLE ORFICE - APPENDICELE ORIFICE PART C: colon - TRANSVERSE POLYPS . 01 Diagnosis: A. CECAL POLYP: Tubular adenoma. . B. APPENDICEAL ORIFICE, BIOPSY: Colonic mucosa with no diagnostic abnormality. Negative for active, chronic, and microscopic colitis. Negative for dysplasia and malignancy. . C. TRANSVERSE COLON POLYPS: Tubular adenomas. [facility] 10/22/2023 1054 Local . 01 Electronically signed: . Nick Barajas MD, PhD, Pathologist NPI- [id number] . 01 Gross description: . Part A: CECAL POLYP: Received in formalin is 1 fragment(s) of nguyễn, soft tissue measuring 0.3 x 0.2 x 0.2 cm submitted entirely in 1 cassette(s) Part B: APPENDICELE ORIFICE: Received in formalin is 1 fragment(s) of nguyễn, soft tissue measuring 0.4 x 0.2 x 0.2 cm submitted entirely in 1 cassette(s) Part C: TRANSVERSE POLYPS: Received in formalin are 4 fragment(s) of nguyễn, soft tissue measuring 0.2 x 0.1 x 0.1 cm to 0.7 x 0.4 x 0.3 cm submitted entirely in 1 cassette(s) /[facility]IOLETA 10/19/2023 2303 Local . 01 Pathologist provided ICD-10: R19.5, D12.0, D12.3 . 01 CPT . 588363, 183152, 820992 Specimen Comment: A courtesy copy of this report has been sent to [phone] Performed at: 01 [facility] [address] [place] [address], [place], [place] [id number] MD Julius Zamarripa MD Phone: [phone]
[2023-10-15 14:35] VITALS: BP 158/70; PULSE 65; RESP 18; TEMP 36.4; O2SAT 99
[2023-10-15] MEDS: LACTATED RINGERS 1,000 ML 42 ML IV (14:50)
--- NOTE | 2023-10-15 15:38 | PM.HP.1 ---
History of Present Illness History of Present Illness Date Patient Seen: 10/15/23 Time Patient Seen: 15:38 Chief complaint: Dx Colonoscopy Narrative: Rosas presents for his colonoscopy for rectal bleeding. See office note from July for details. He has not noted the bleeding recently. [facility] Medical History (Updated 08/24/23 @ 09:53 by Jose Loco RN) GERD (gastroesophageal reflux disease) Gout Hypothyroidism Diabetic peripheral neuropathy Diabetes type 2, controlled Hypertriglyceridemia Thoracic back pain Venous stasis ulcer Anemia Hypertension Heart murmur, systolic Dermatitis Social History Smoking Status: Former smoker alcohol intake: never Meds Home Medications and Allergies Home Medications Medication Instructions Recorded Confirmed Type allopurinol 300 mg tablet 300 mg PO DAILY 08/24/23 10/15/23 History amitriptyline 25 mg tablet 25 mg PO DAILY 08/24/23 10/15/23 History atorvastatin 40 mg tablet 40 mg PO DAILY 08/24/23 10/15/23 History ferrous sulfate 325 mg (65 mg 325 mg PO DAILY 08/24/23 10/15/23 History iron) tablet gabapentin 300 mg capsule 1,200 mg PO BEDTIME 08/24/23 10/15/23 History glipizide 5 mg tablet 5 mg PO BID 08/24/23 10/15/23 History hydroxyzine HCl 25 mg tablet 25 mg PO BEDTIME PRN Sleep 08/24/23 10/15/23 History levothyroxine 100 mcg capsule 100 mcg PO DAILY 08/24/23 10/15/23 History metformin 500 mg tablet 1,000 mg PO BID 08/24/23 10/15/23 History omeprazole 20 mg capsule,delayed 20 mg PO DAILY 08/24/23 10/15/23 History release tramadol 50 mg tablet 50 mg PO Q6H PRN 08/24/23 08/24/23 History peg 3350-sod sulf,sceet-wkq-ina 1,000 ml PO DIRECTED #2,000 mL 10/12/23 10/15/23 Rx 178.7-7.3-0.5-1.12-0.9 gram oral soln (Suflave) Allergies Allergy/AdvReac Type Severity Reaction Status Date / Time Penicillins Allergy Intermediate Rash Verified 10/15/23 14:36 Exam Vital Signs (past 8 hours): - 10/15/23 14:35 Temperature 97.5 F L Pulse Rate 65 Respiratory Rate 18 Blood Pressure 158/70 H Pulse Oximetry 99 Oxygen Delivery Method Room Air Oxygen Delivery Method Room Air Const General: No acute distress Resp Effort & Inspection: normal respiratory effort Assessment & Plan Assessment and plan (1) Bright red blood per rectum: Status: Acute Plan We reviewed the risks and benefits of colonoscopy and he would like to proceed.
--- NOTE | 2023-10-15 16:27 | P.OP.COLON_ITS ---
Operative Date/Time/Diagnoses Date of procedure: 10/15/23 Time of procedure: 16:27 Pre-op diagnosis: Rectal bleeding Post-op diagnosis: same Procedure & Clinicians Study performed: Colonoscopy Same procedure as scheduled: Yes Surgeon: Aníbal Logan Procedure Notes Procedure in detail: Surgeon: Aníbal Logan MD Anesthesia: Mary Gaona CRNA Procedure: The patient was brought to the endoscopy suite, placed in left lateral decubitus position. The patient was connected to monitoring devices. A time-out was performed. Sedation was administered. Once the patient was adequately sedated, a digital rectal exam was performed and was normal. The scope was then inserted and advanced to the cecum where the appendiceal orifice was identified and photographed. There was a 3 mm polyp in the cecum removed with the cold Jumbo forceps. The appendiceal orifice was inverted into the cecu m creating a 2 cm mass. The mucosa over the appendix appeared normal however a biopsy was taken from the mucosa with cold Jumbo forceps. There were 3 polyps in the distal transverse colon near the splenic flexure under 1 cm. They were all removed with cold snare and sent together as transverse colon polyps. There were some diverticula in the sigmoid colon. The scope was retroflexed in the rectum. No other abnormalities were found. The scope was straightened and removed. The patient was awakened and brought to recovery. Scope withdrawal time: 19 minutes Sedation time: 27 minutes EBL: 5 mL Findings: Inverted appendiceal orifice with mass effect, subcentimeter polyps in the cecum (1) and distal transverse colon (3) Post-procedure Disposition: PACU
[2023-10-15 16:32] VITALS: BP 88/47; PULSE 86; RESP 15; TEMP 36.4; O2SAT 95
[2023-10-15 16:36] VITALS: BP 85/55; PULSE 85; RESP 15; O2SAT 90
[2023-10-15 16:41] VITALS: BP 117/61; PULSE 81; RESP 17; O2SAT 98
[2023-10-15 16:48] VITALS: BP 127/66; PULSE 75; RESP 16; O2SAT 92
== END 2023-10-15 17:00 | disposition home or self-care (01) ==
PROVIDERS: PCP Physician Assistant Medical; Referring Provider Surgery; Visit Provider Surgery
PROC: 0DJD8ZZ Inspection of Lower Intestinal Tract, Via Natural or Artificial Opening Endoscopic (ICD-10-PCS; CPT 45378; principal; 2023-10-15 14:45)
DX: K62.5 Hemorrhage of anus and rectum (principal); K57.30 Diverticulosis of large intestine without perforation or abscess without bleeding; D12.0 Benign neoplasm of cecum; D12.3 Benign neoplasm of transverse colon
CPT/HCPCS: 45385; 45380; J2704

== ENCOUNTER 2023-12-09 11:35 | Emergency (ER) | payer MEDICARE, SELFPAY ==
[2023-12-09] VITALS (8 sets, daily range): BP systolic 141–179; BP diastolic 72–77; PULSE 73–78; RESP 12–18; TEMP 37.1; O2SAT 97–98; BMI 40.4
--- NOTE | 2023-12-09 12:01 | DI.RAD.S_ITS ---
PROCEDURE: XR CHEST 1V INDICATIONS: chest pain TECHNIQUE: One view of the chest was acquired. COMPARISON: [facility], CR, XR CHEST 1V, 11/09/2022, 23:29. FINDINGS: Surgical changes and devices: None. Lungs and pleura: Lungs are clear. No pleural effusions or pneumothorax. Mediastinum: Mediastinal contours appear normal. Heart size is enlarged. Bones and chest wall: No suspicious bony lesions. Overlying soft tissues appear unremarkable. IMPRESSION: No acute pulmonary process. Dictated by: Jocelyn Johnson M.D. on 12/09/2023 at 13:01 Approved by: Jocelyn Johnson M.D. on 12/09/2023 at 13:01
--- NOTE | 2023-12-09 12:05 | EKG_ITS ---
[address] [address] [place] [address] Test Date: 2023-12-09 Pat Name: Rosas Vicente Department: Room: Gender: M Scrub Woman: MARII : 1950 Requested By: Order Number: [id number] Reading MD: Fernando Melendrez MD Measurements Intervals [place] Rate: 74 P: 54 NE: 178 QRS: -32 QRSD: 118 T: 103 QT: 446 QTc: 495 Interpretive Statements Sinus rhythm with frequent premature ventricular complexes Left axis deviation Left ventricular hypertrophy with QRS widening and repolarization abnormality ( R in aVL ) Prolonged QT Electronically Signed On 12-10-2023 11:54:23 PDT by Fernando Melendrez MD
[2023-12-09 12:07] LABS: Add Manual Diff / Slide Review NO; Basophils Absolute Auto 0 /uL (0-100); Basophils Percent Auto 0.7 % (0-2); Eosinophils Absolute Auto 300 /uL (0-450); Eosinophils Percent Auto 7.8 % (2-4); Hematocrit 32.1 % (41-53); Hemoglobin 10.8 g/dL (13.5-17.5); Lymphocytes Absolute Auto 1400 /uL (1100-4500); Lymphocytes Percent Auto 34.4 % (25-40); Mean Corpuscular HGB Conc 33.8 % (30-36); Mean Corpuscular Hemoglobin 32.1 PG (26-34); Mean Corpuscular Volume 95.2 fL (80-100); Monocytes Absolute Auto 300 /uL (0-900); Neutrophils Absolute Auto 2100 /uL (1500-7000); Neutrophils Percent Auto 49.1 % (50-75); Platelet Count 126 X10^3/uL (150-400); Red Blood Cell Count 3.37 X10^6/uL (4.5-5.9); Red Cell Distribution Width 16.2 % (11.6-14.8); White Blood Cell Count 4.2 X10^3/uL (4.5-11.0)
[2023-12-09 12:14] LABS: INR 1.1 (0.9-1.3)
[2023-12-09 12:16] LABS: PTT Partial Thromboplastin Tim 37 SECONDS (25.1-36.5)
[2023-12-09 12:19] LABS: Alanine Aminotransferase 39 IU/L (<50); Albumin 3.5 g/dL (3.5-5.0); Albumin Globulin Ratio 1.2 (1.0-2.8); Alkaline Phosphatase 140 U/L (38-126); Aspartate Aminotransferase 85 IU/L (17-59); BUN Creatinine Ratio 29.9 (6-22); Bilirubin Total 0.9 mg/dL (0.2-1.3); Blood Urea Nitrogen 32 mg/dL (9-20); Calcium 10.1 mg/dL (8.4-10.2); Carbon Dioxide 25 mmol/L (22-32); Chloride 111 mmol/L (98-107); Creatine Kinase 312 U/L (55-170); Estimated Glomerular Filt Rate > 60 mL/min (>60); Glucose 166 mg/dL (80-110); HEMOLYSIS 18 (0-50); Lipase 444 U/L (23-300); Magnesium 1.8 mg/dL (1.6-2.3); Sodium 141 mmol/L (137-145); Total Protein 6.5 g/dL (6.3-8.2)
--- NOTE | 2023-12-09 12:24 | ED_ITS ---
HPI - Neuro Symptoms/Deficit General Chief Complaint: Neuro Symptoms/Deficit Stated Complaint: hands shaking, diff sleeping Time Seen by Provider: 12/09/23 12:24 Source: patient Mode of arrival: Ambulatory History of Present Illness HPI Narrative: Patient is a 73-year-old male with history of a ventricular tachycardia presents today with ongoing weakness. He reports that he had a cardiac episode here about 1 year ago which is noted in the records and he was transferred to [facility]. He reports since then he has had increasing shaking in the arms and he has intermittent slurring of speech. Brother at bedside is a primary historian reports that some days are better than other days. however states patient has been in bed the last 2 days with increasing weakness. Brother thought it maybe was having more slurring of speech than normal. He feels generally weak. Maybe was having a cough no significant chest pain or shortness of breath. On Anticoagulants: Yes Related Data Home Medications Medication Instructions Recorded Confirmed allopurinol 300 mg tablet 300 mg PO DAILY 08/24/23 10/15/23 amitriptyline 25 mg tablet 25 mg PO DAILY 08/24/23 10/15/23 atorvastatin 40 mg tablet 40 mg PO DAILY 08/24/23 10/15/23 ferrous sulfate 325 mg (65 mg 325 mg PO DAILY 08/24/23 10/15/23 iron) tablet gabapentin 300 mg capsule 1,200 mg PO BEDTIME 08/24/23 10/15/23 glipizide 5 mg tablet 5 mg PO BID 08/24/23 10/15/23 hydroxyzine HCl 25 mg tablet 25 mg PO BEDTIME PRN Sleep 08/24/23 10/15/23 levothyroxine 100 mcg capsule 100 mcg PO DAILY 08/24/23 10/15/23 metformin 500 mg tablet 1,000 mg PO BID 08/24/23 10/15/23 omeprazole 20 mg capsule,delayed 20 mg PO DAILY 08/24/23 10/15/23 release tramadol 50 mg tablet 50 mg PO Q6H PRN 08/24/23 08/24/23 Previous Rx's Medication Instructions Recorded peg 3350-sod sulf,yqhvy-baw-svv 1,000 ml PO DIRECTED #2,000 mL 10/12/23 178.7-7.3-0.5-1.12-0.9 gram oral soln (Suflave) Allergies Allergy/AdvReac Type Severity Reaction Status Date / Time Penicillins Allergy Intermediate Rash Verified 12/09/23 11:43 Review of Systems Hematologic/Lymphatic On Anticoagulants: Yes Patient History Medical History (Updated 12/09/23 @ 15:21 by Kyleigh Moise DO) GERD (gastroesophageal reflux disease) Gout Hypothyroidism Diabetic peripheral neuropathy Diabetes type 2, controlled Hypertriglyceridemia Thoracic back pain Venous stasis ulcer Anemia Hypertension Heart murmur, systolic Dermatitis Social History Smoking Status: Former smoker alcohol intake: never Smoking Status: Former smoker Substance Use Type: does not use Exam Initial Vital Signs Initial Vital Signs: Vital Signs Temperature 98.7 F 12/09/23 11:39 Pulse Rate 78 12/09/23 11:39 Respiratory Rate 16 12/09/23 11:39 Blood Pressure 179/77 H 12/09/23 11:39 Pulse Oximetry 97 12/09/23 11:39 Oxygen Delivery Method Room Air 12/09/23 11:39 GENERAL: Alert pleasant 73-year-old male and in no acute distress. HEENT: Head atraumatic,EOMI, pupils reactive, face symmetric, moist mucous membranes CARDIOVASCULAR: Regular rate and rhythm without murmurs, rubs or gallops. RESPIRATORY: Breath sounds equal bilaterally, no wheezes rales or rhonchi. ABDOMEN: Soft, nontender. Normoactive bowel sounds all 4 quadrants. No guarding or rebound. EXTREMITIES: Normal range of motion, no clubbing or edema. Neurovascularly intact NEUROLOGICAL: Alert and oriented x4.Normal gait and speech. Cranial nerves II through XII grossly intact. Good pnbnme-ax-evnc, good jibz-vm-omig, strength equal bilaterally, no dysarthria or aphasia, sensation in tact to soft touch bilaterally, no visual changes, no facial droop intention tremor is noted in bilateral hands but no resting tremor appreciated SKIN: Warm, dry, no laceration, no petechiae, no rashes or lesions. Course Orders Ordered: ED Orders 12/09/23 11:57 Complete Blood Count AUTO DIFF Stat Comprehensive Metabolic Panel Stat Lactate (Lactic Acid) Stat Lipase Stat Magnesium Stat PTT Partial Thromboplastin Tomy Stat Procalcitonin Stat Prothrombin Time INR Stat Troponin & CK Cardiac Panel Stat 12/09/23 12:01 XR chest 1V Stat EKG-12 Lead Stat 12/09/23 13:13 CT head/brain wo con Stat 12/09/23 13:33 Respiratory Panel (Film Array) Stat 12/09/23 13:42 Blood Culture Stat 12/09/23 14:01 UA Complete [Urinalysis and Microscopic] Stat Discontinued Medications Aspirin (Aspirin 81 Mg Chew Tab) 324 mg PO NOW ONE Stop: 12/09/23 12:02 Vital Signs Vital signs: Vital Signs - 8 hr 12/09/23 11:39 12/09/23 11:45 12/09/23 12:00 Temperature 98.7 F Pulse Rate 78 75 75 Respiratory Rate 16 16 18 Blood Pressure 179/77 H 141/73 H 150/72 H Pulse Oximetry 97 98 98 Oxygen Delivery Method Room Air Room Air Room Air 12/09/23 12:30 12/09/23 13:00 12/09/23 13:30 Temperature Pulse Rate 73 75 74 Respiratory Rate 18 12 14 Blood Pressure 162/75 H 153/76 H 159/75 H Pulse Oximetry 98 97 98 Oxygen Delivery Method Room Air 12/09/23 14:15 12/09/23 15:23 Temperature Pulse Rate 75 75 Respiratory Rate 13 14 Blood Pressure 170/77 H 177/77 H Pulse Oximetry 98 98 Oxygen Delivery Method MDM - Neuro Symptoms/Deficit Lab Data 12/09/23 11:57 12/09/23 11:57 Labs: Lab Results 12/09/23 12/09/23 12/09/23 Range/Units 11:57 13:33 14:01 WBC 4.2 L (4.5-11.0) X10^3/uL RBC 3.37 L (4.5-5.9) X10^6/uL Hgb 10.8 L (13.5-17.5) g/dL Hct 32.1 L (41-53) % MCV 95.2 (80-100) fL MCH 32.1 (26-34) PG MCHC 33.8 (30-36) % RDW 16.2 H (11.6-14.8) % Plt Count 126 L (150-400) X10^3/uL Neut % (Auto) 49.1 L (50-75) % Lymph % (Auto) 34.4 (25-40) % [place] % (Auto) 8.0 (3-14) % Eos % (Auto) 7.8 H (2-4) % Baso % (Auto) 0.7 (0-2) % Neut # (Auto) 2100 (1918-0928) /uL Lymph # (Auto) 1400 (7492-0323) /uL [place] # (Auto) 300 (0-900) /uL Eos # (Auto) 300 (0-450) /uL Baso # (Auto) 0 (0-100) /uL PT 13.0 H (9.4-12.5) SECONDS INR 1.1 (0.9-1.3) APTT 37 H (25.1-36.5) SECONDS Sodium 141 (137-145) mmol/L Potassium 4.0 (3.4-5.1) mmol/L Chloride 111 H (98-107) mmol/L Carbon Dioxide 25 (22-32) mmol/L BUN 32 H (9-20) mg/dL Creatinine 1.07 (0.66-1.25) mg/dL Estimated GFR > 60 (>60) mL/min BUN/Creatinine Ratio 29.9 H (6-22) Glucose 166 H (80-110) mg/dL Lactate 2.1 (0.7-2.1) mmol/L Calcium 10.1 (8.4-10.2) mg/dL Magnesium 1.8 (1.6-2.3) mg/dL Total Bilirubin 0.9 (0.2-1.3) mg/dL AST 85 H (17-59) IU/L ALT 39 (<50) IU/L Alkaline Phosphatase 140 H (38-126) U/L Total Creatine Kinase 312 H (55-170) U/L Troponin I 0.013 (0.01-0.034) ng/mL Total Protein 6.5 (6.3-8.2) g/dL Albumin 3.5 (3.5-5.0) g/dL Globulin 3.0 (1.7-4.1) g/dL Albumin/Globulin Ratio 1.2 (1.0-2.8) Lipase 444 H (23-300) U/L Procalcitonin 0.131 (<0.5) ng/mL Urine Color Yellow Urine Appearance Clear Urine pH 6.5 (4.5-8.0) Ur Specific [place] 1.020 (1.000-1.035) Urine Protein Trace H (Negative) Urine Glucose (UA) Negative (Negative) g/dL Urine Ketones Negative (NEGATIVE) Urine Occult Blood Trace-intact (Negative) Urine Nitrate Negative (Negative) Urine Bilirubin Negative (NEGATIVE) Urine Urobilinogen 1.0 (0.2) E.U./dL Ur Leukocyte Esterase Negative (NEGATIVE) Urine RBC 0-1/hpf (0-5/HPF) Urine WBC 0-1/hpf (0-5/HPF) Ur Squamous Epith Cells 1-5 /hpf (0-5/HPF) Urine Bacteria None seen (None) Ur Culture Indicated? Cult not indicated Vol Urine Centrifuged 10ml (spun) Chlamy pneumoniae PCR Not detected (Not Detect) Adenovirus (PCR) Not detected (Not Detect) B.parapertussis DNA PCR Not detected (Not Detecte) Coronavirus OC43 (PCR) Not detected (Not Detect) Coronavirus HKU1 (PCR) Not detected (Not Detect) Coronavirus 229E (PCR) Not detected (Not Detect) SARS-CoV-2 (PCR) Not detected (Not Detecte) Coronavirus NL63 (PCR) Not detected (Not Detect) Human Metapneumovir PCR Not detected (Not Detect) Influenza Type A (PCR) Not detected (Not Detect) Influenza Type B (PCR) Not detected (Not Detect) M. pneumoniae (PCR) Not detected (Not Detect) Parainfluenza 1 (PCR) Not detected (Not Detect) Parainfluenza 2 (PCR) Not detected (Not Detect) Parainfluenza 3 (PCR) Not detected (Not Detect) Parainfluenza 4 (PCR) Not detected (Not Detect) RSV (PCR) Not detected (Not Detect) Entero/Rhino (PCR) Not detected (Not Detect) Imaging Data Chest x-ray: Radiologist's Impression: PROCEDURE: XR CHEST 1V INDICATIONS: chest pain TECHNIQUE: One view of the chest was acquired. COMPARISON: [facility], , XR CHEST 1V, 11/09/2022, 23:29. FINDINGS: Surgical changes and devices: None. Lungs and pleura: Lungs are clear. No pleural effusions or pneumothorax. Mediastinum: Mediastinal contours appear normal. Heart size is enlarged. Bones and chest wall: No suspicious bony lesions. Overlying soft tissues appear unremarkable. IMPRESSION: No acute pulmonary process. Dictated by: Jocelyn Johnson M.D. on 12/09/2023 at 13:01 ECG Data Interpretation: Bigeminy sinus rhythm rate 74 PA interval 178 QRS [address] changes MDM Narrative Medical decision making narrative: MDM CC: Weakness shaking Complicating co-morbidities: [ ] Data collected from: Brother at bedside and daughter Medical records reviewed: yes Differential considered: Infection stroke cardiac arrhythmia Exam documented above, pertinent findings include: Hands are shaking with movement only not at rest A&O x4 no gross focal deficits, Lab Test results independently reviewed as above. Pertinent findings: WBC 4.2, hemoglobin 10.8 hematocrit 32, sodium 141 potassium 4.0 chloride 111 carbon dioxide 25 BUN 32 creatinine 1.0, glucose 166, lactate 2.1, magnesium 1.8 bilirubin 0.9 AST 85 ALT 39, alk-phos 140 troponin negative procalcitonin 0.131 Urinalysis negative Respiratory panel negative Independently reviewed EKG as above sinus rhythm frequent PVCs Imaging studies independently reviewed: Head CT no acute intracranial abnormality chest x-ray no acute cardiopulmonary process Re-evaluations: Patient ambulated to restroom without any sort of assistance drinking water Discussion: Patient presents worsening weakness over the last 2 days. It sounds like he has intermittent slurring of speech for over a year along with on shaking for over a year. Family concerned because of increased weakness over last couple of days. No obvious sign of infection or abnormality is found. Mildly dehydrated with a BUN of 32 but not vomiting or nauseous. Family is very concerned about what is going on with him, but it sounds like a lot of it has been chronic and ongoing today I am not finding anything significantly acute no reason for admission recommended outpatient Neurology and possible outpatient MRI. But at this time he has not really having any sort of focal deficits or reason for admission Discharge Plan Departure Patient Disposition: Home Clinical Impression: Weakness Instructions: DI for Muscle Weakness Activity Restrictions/Additional Instructions: *You have been diagnosed with weakness *What to do: At this time I have no explanation for your ongoing weakness. There is no evidence of infection x-ray and blood work are reassuring. Head CT did not show any obvious abnormality. *Continue to take medications as directed *Follow up with your primary care provider in 2-3 days or call [phone] Please talk with your primary care provider about neurology consultation and possible outpatient MRI of the brain, which was not emergently indicated today *Return to ER if you should have increasing weakness decreasing appetite increasing confusion or any new, worsening or concerning symptoms Prescriptions: No Action Suflave 178.7-7.3-0.5 gram recon soln 1,000 ml PO DIRECTED Qty: 2000 0RF Rx Instructions: take as directed by Physician hydroxyzine HCl 25 mg tablet 25 mg PO BEDTIME PRN (Reason: Sleep) ferrous sulfate 325 mg (65 mg iron) tablet 325 mg PO DAILY atorvastatin 40 mg tablet 40 mg PO DAILY tramadol 50 mg tablet 50 mg PO Q6H PRN metformin 500 mg tablet 1,000 mg PO BID allopurinol 300 mg tablet 300 mg PO DAILY omeprazole 20 mg capsule,delayed release(DR/EC) 20 mg PO DAILY amitriptyline 25 mg tablet 25 mg PO DAILY gabapentin 300 mg capsule 1,200 mg PO BEDTIME levothyroxine 100 mcg capsule 100 mcg PO DAILY glipizide 5 mg tablet 5 mg PO BID Referrals: Rebeca Hicks PA-C [Primary Care Provider] - Stand Alone Forms: Patient Portal/API
[2023-12-09 12:31] LABS: Troponin I 0.013 ng/mL (0.01-0.034)
--- NOTE | 2023-12-09 13:13 | DI.CT.S_ITS ---
PROCEDURE: CT HEAD/BRAIN WO CON INDICATIONS: confusion TECHNIQUE: Noncontrast 4.5 mm thick angled axial sections acquired from the foramen magnum to the vertex, with coronal and sagittal reformats. For radiation dose reduction, the following was used: automated exposure control, adjustment of mA and/or kV according to patient size. COMPARISON: CT, CT ANGIO HEAD AND NECK, 11/10/2022, 0:31. FINDINGS: Image quality: Diagnostic. CSF spaces: Basal cisterns are patent. No extra-axial fluid collections. The ventricles are symmetric in size and shape. Brain: No intracranial bleeds or masses. There is cerebral volume loss for age, with resultant ventricular and sulcal prominence. There are periventricular and deep white matter chronic small vessel ischemic changes. There is intracranial internal carotid artery atherosclerosis. Skull and face: Calvarium and visualized facial bones appear intact, without suspicious lesions. Sinuses: Visualized sinuses and mastoids are clear. IMPRESSION: 1. No acute intracranial process. 2. Moderate atrophy and chronic microvascular ischemic changes. Dictated by: Jocelyn Johnson M.D. on 12/09/2023 at 14:31 Approved by: Jocelyn Johnson M.D. on 12/09/2023 at 14:31
[2023-12-09 13:26] LABS: Lactate (Lactic Acid) 2.1 mmol/L (0.7-2.1)
[2023-12-09 13:43] LABS: Procalcitonin 0.131 ng/mL (<0.5)
[2023-12-09 14:13] LABS: Appearance Urine UA CLEAR; Bilirubin Urine UA NEGATIVE (NEGATIVE); Color Urine UA YELLOW; Glucose Urine UA NEGATIVE (Negative); Ketones Urine UA NEGATIVE (NEGATIVE); Leukocyte Esterase Urine UA NEGATIVE (NEGATIVE); Nitrite Urine UA NEGATIVE (Negative); Occult Blood Urine UA TRACE-INTACT (Negative); Protein Urine UA TRACE (Negative); pH Urine UA 6.5 (4.5-8.0)
[2023-12-09 14:15] LABS: Urine Volume 10mL (spun)
[2023-12-09 14:17] LABS: Bacteria Urine None Seen; Culture Indicated Urine Cult Not Indicated; RBC Urine 0-1/HPF (0-5/HPF); Squamous Epithelial Cell Urine 1-5 /HPF (0-5/HPF); WBC Urine 0-1/HPF (0-5/HPF)
[2023-12-09 14:24] LABS: Adenovirus Not Detected (Not Detect); B. parapertussis Not Detected (Not Detecte); Bordetella pertussis Not Detected (Not Detect); Chlamydophila pneumoniae Not Detected (Not Detect); Coronavirus 229E Not Detected (Not Detect); Coronavirus HKU1 Not Detected (Not Detect); Coronavirus NL 63 Not Detected (Not Detect); Coronavirus OC43 Not Detected (Not Detect); Human Metapneumovirus Not Detected (Not Detect); Human Rhinovirus/Enterovirus Not Detected (Not Detect); Influenza A Not Detected (Not Detect); Influenza B Not Detected (Not Detect); Mycoplasma pneumoniae Not Detected (Not Detect); Parainfluenza Virus 1 Not Detected (Not Detect); Parainfluenza Virus 2 Not Detected (Not Detect); Parainfluenza Virus 3 Not Detected (Not Detect); Parainfluenza Virus 4 Not Detected (Not Detect); Respiratory Syncytial Virus Not Detected (Not Detect); SARS- CoV-2 Not Detected (Not Detecte)
[2023-12-09 14:54] LABS: Reflexed Lactate in 2 Hours Y
== END 2023-12-09 15:38 | disposition home or self-care (01) ==
PROVIDERS: Emergency Provider Emergency Medicine; PCP Physician Assistant Medical
DX: R53.1 Weakness (principal); R07.9 Chest pain, unspecified; Z79.01 Long term (current) use of anticoagulants; Z20.822 Contact with and (suspected) exposure to COVID-19
CPT/HCPCS: 36415; 70450; 71045; 80053; 81001; 82550; 83605; 83690; 83735; 84145; 84484; 85025; 85610; 85730; 87040; 87633; 93005; 99283; 99284

== ENCOUNTER 2024-06-03 12:12 | Inpatient (IN) | payer MEDICARE, SELFPAY ==
[2024-06-03] VITALS (20 sets, daily range): BP systolic 119–182; BP diastolic 58–81; PULSE 77–105; RESP 9–25; TEMP 36.6–36.7; O2SAT 97–100; BMI 36.6; BMI 38.2
--- NOTE | 2024-06-03 12:32 | DI.RAD.S_ITS ---
PROCEDURE: XR CHEST 1V INDICATIONS: altered mental status TECHNIQUE: One view of the chest was acquired. COMPARISON: [facility], CR, XR CHEST 1V, 12/09/2023, 12:01. [facility], CR, XR CHEST 1V, 11/09/2022, 23:29. FINDINGS: Surgical changes and devices: None. Lungs and pleura: Right basilar airspace opacity silhouetting the medial right heart border. Mediastinum: Mediastinal contours appear normal. Heart size is normal. Bones and chest wall: No suspicious bony lesions. Overlying soft tissues appear unremarkable. IMPRESSION: Medial right middle lobe airspace opacity, could represent atelectasis, infection or aspiration. Dictated by: Hernan Diaz M.D. on 06/03/2024 at 13:12 Approved by: Hernan Diaz M.D. on 06/03/2024 at 13:13
--- NOTE | 2024-06-03 13:08 | EKG_ITS ---
[address] [place] [address] Test Date: 2024-06-03 Pat Name: Rosas Vicente Department: Room: Gender: Male [employer] Supervisor: MARII : [id number] Requested By: Order Number: [id number] Reading MD: Fernando Melendrez MD Measurements Intervals [place] Rate: 83 P: 32 MA: 162 QRS: -32 QRSD: 120 T: 107 QT: 416 QTc: 488 Interpretive Statements Normal sinus rhythm Left axis deviation Left ventricular hypertrophy with QRS widening and repolarization abnormality ( R in aVL , Eduardo product ) Electronically Signed On 06-05-2024 17:05:29 PST by Fernando Melendrez MD
[2024-06-03 13:55] LABS: Add Manual Diff / Slide Review NO; Basophils Absolute Auto 0 /uL (0-100); Basophils Percent Auto 0.9 % (0-2); Eosinophils Absolute Auto 400 /uL (0-450); Eosinophils Percent Auto 10.6 % (2-4); Hematocrit 32.5 % (41-53); Lymphocytes Absolute Auto 1100 /uL (1100-4500); Lymphocytes Percent Auto 28.9 % (25-40); Mean Corpuscular HGB Conc 33.7 % (30-36); Mean Corpuscular Hemoglobin 33.3 PG (26-34); Mean Corpuscular Volume 98.8 fL (80-100); Monocytes Absolute Auto 400 /uL (0-900); Monocytes Percent Auto 9.7 % (3-14); Neutrophils Absolute Auto 1900 /uL (1500-7000); Neutrophils Percent Auto 49.9 % (50-75); Platelet Count 111 X10^3/uL (150-400); Red Blood Cell Count 3.29 X10^6/uL (4.5-5.9); Red Cell Distribution Width 16.1 % (11.6-14.8); White Blood Cell Count 3.8 X10^3/uL (4.5-11.0)
[2024-06-03 13:57] LABS: Appearance Urine UA CLEAR; Bilirubin Urine UA NEGATIVE (NEGATIVE); Color Urine UA YELLOW; Glucose Urine UA NEGATIVE (Negative); Ketones Urine UA NEGATIVE (NEGATIVE); Leukocyte Esterase Urine UA NEGATIVE (NEGATIVE); Nitrite Urine UA NEGATIVE (Negative); Occult Blood Urine UA TRACE-INTACT (Negative); Protein Urine UA NEGATIVE (Negative); Specific Gravity Urine UA 1.015 (1.000-1.035); Urobilinogen Urine UA 0.2 E.U./dL (0.2); pH Urine UA 6.5 (4.5-8.0)
[2024-06-03 14:01] LABS: Alanine Aminotransferase 52 IU/L (<50); Albumin 3.5 g/dL (3.5-5.0); Alkaline Phosphatase 120 U/L (38-126); Aspartate Aminotransferase 119 IU/L (17-59); BUN Creatinine Ratio 24.8 (6-22); Bilirubin Total 1.4 mg/dL (0.2-1.3); Blood Urea Nitrogen 27 mg/dL (9-20); Calcium 10.7 mg/dL (8.4-10.2); Carbon Dioxide 23 mmol/L (22-32); Chloride 109 mmol/L (98-107); Estimated Glomerular Filt Rate > 60 mL/min (>60); Globulin 3.4 g/dL (1.7-4.1); Glucose 113 mg/dL (80-110); HEMOLYSIS < 15 (0-50); Potassium 3.9 mmol/L (3.4-5.1); Sodium 137 mmol/L (137-145); Total Protein 6.9 g/dL (6.3-8.2)
[2024-06-03 14:05] LABS: Ammonia (NH3) 63 umol/L (9-30)
[2024-06-03 14:10] LABS: Ur Creatinine Normal (Normal); Ur Specific Gravity Normal (Normal); Urine Cocaine Negative (Negative); Urine THC Negative (Negative); Urine Tricyclic Antidepressant Positive (Negative); Urine pH Normal (Normal)
[2024-06-03 14:11] LABS: Urine Amphetamines Negative (Negative); Urine Barbiturates Negative (Negative); Urine Benzodiazepines Negative (Negative); Urine MDMA Negative (Negative); Urine Methadone Negative (Negative); Urine Methamphetamines Negative (Negative); Urine Opiates Negative (Negative); Urine Oxycodone Negative (Negative); Urine Phencyclidine Negative (Negative)
[2024-06-03 14:18] LABS: Bacteria Urine None Seen; Culture Indicated Urine Cult Not Indicated; RBC Urine None Seen (0-5/HPF); Squamous Epithelial Cell Urine None Seen (0-5/HPF); Urine Volume 10mL (spun); WBC Urine 0-1/HPF (0-5/HPF)
--- NOTE | 2024-06-03 14:51 | ED_ITS ---
HPI - Altered Mental Status General Chief Complaint: Altered Mental Status Stated Complaint: AMS Time Seen by Provider: 06/03/24 14:49 Source: patient, RN notes reviewed and old records reviewed Limitations: no limitations History of Present Illness HPI narrative: 73-year-old male history of ventricular tachycardia, cirrhosis, hypertension, diabetes, gout, dyslipidemia presents with complaint of being bit more confused shaky and falling and bumping into things. Patient has had issues on and off for the past year to but significantly worse since Thursday night. They state they have been concerned about his safety ambulating at home and he has had increasing confusion and sleepiness. No fevers reported. No chest pain or shortness of breath. No nausea or vomiting. No issues with bowel movements no black or bloody stools. No dysuria urgency or frequency. No incontinence. They describe has been off balance. No lateralizing deficits. Patient does not have any localized weakness that they have appreciated. No recent medication changes. Did have a blister on his right lower extremity that had gotten infected was put on oral antibiotics and took some time to heal but has since ultimately improved. Patient is on medications for hypertension diabetes dyslipidemia but no aspirin or other anticoagulants. Allergy to penicillin. No tobacco no regular alcohol or recreational drugs. Primary care is Shital Lindo in [place]. Has seen Cardiology in the past but been released. Is scheduled to see Hematology secondary to his chronic lab abnormalities. Patient family states he does have some history of cirrhosis, he has not on lactulose. His states that someone had told her that at some point. Neither patient or family appreciate any increase in abdominal girth or bloating or swelling. Related Data Home Medications Medication Instructions Recorded Confirmed allopurinol 300 mg tablet 300 mg PO DAILY 08/24/23 10/15/23 amitriptyline 25 mg tablet 25 mg PO DAILY 08/24/23 10/15/23 atorvastatin 40 mg tablet 40 mg PO DAILY 08/24/23 10/15/23 ferrous sulfate 325 mg (65 mg 325 mg PO DAILY 08/24/23 10/15/23 iron) tablet gabapentin 300 mg capsule 1,200 mg PO BEDTIME 08/24/23 10/15/23 glipizide 5 mg tablet 5 mg PO BID 08/24/23 10/15/23 hydroxyzine HCl 25 mg tablet 25 mg PO BEDTIME PRN Sleep 08/24/23 10/15/23 levothyroxine 100 mcg capsule 100 mcg PO DAILY 08/24/23 10/15/23 metformin 500 mg tablet 1,000 mg PO BID 08/24/23 10/15/23 omeprazole 20 mg capsule,delayed 20 mg PO DAILY 08/24/23 10/15/23 release tramadol 50 mg tablet 50 mg PO Q6H PRN 08/24/23 08/24/23 Previous Rx's Medication Instructions Recorded peg 3350-sod sulf,gwukc-hzu-eao 1,000 ml PO DIRECTED #2,000 mL 10/12/23 178.7-7.3-0.5-1.12-0.9 gram oral soln (Suflave) Allergies Allergy/AdvReac Type Severity Reaction Status Date / Time Penicillins Allergy Intermediate Rash Verified 12/09/23 11:43 Review of Systems Review of Systems ROS Unobtainable: All systems reviewed & are unremarkable except as noted in HPI and below Patient History Medical History GERD (gastroesophageal reflux disease) Gout Hypothyroidism Diabetic peripheral neuropathy Diabetes type 2, controlled Hypertriglyceridemia Thoracic back pain Venous stasis ulcer Anemia Hypertension Heart murmur, systolic Dermatitis Social History Smoking Status: Former smoker alcohol intake: never Smoking Status: Former smoker Exam Narrative Exam Narrative: GENERAL: Alert and oriented, obese patient is slightly confused slightly slow to respond, can answer some questions very well can tell me about some of his medications. But has a little bit forgetful sometimes forgetting to answer my question. HEENT: Head normocephalic, atraumatic, EOMI, pupils reactive, face symmetric, moist mucous membranes NECK: Supple, full range of motion CARDIOVASCULAR: Regular rate and rhythm without murmurs, rubs or gallops. RESPIRATORY: Breath sounds equal bilaterally, no wheezes rales or rhonchi. ABDOMEN: Soft, nontender. Normoactive bowel sounds all 4 quadrants. No guarding or rebound, rigidity, no mass : No CVA tenderness EXTREMITIES: Normal range of motion, no clubbing. Mild bilateral lower extremity edema, patient has some hyperpigmentation right anterior chance no warmth or erythema. Nontender to touch. Neurovascularly intact NEUROLOGICAL: Cranial nerves II through XII grossly intact. Moving all extremities SKIN: Warm, dry, no petechiae, no rashes or lesions otherwise noted. Initial Vital Signs Initial Vital Signs: Vital Signs Temperature 98.0 F 06/03/24 12:14 Pulse Rate 79 06/03/24 12:14 Respiratory Rate 16 06/03/24 12:14 Blood Pressure 177/81 H 06/03/24 12:14 Pulse Oximetry 99 06/03/24 12:14 Oxygen Delivery Method Room Air 06/03/24 12:14 Course Orders Ordered: ED Orders 06/03/24 12:31 Urinalysis and Microscopic Stat Urine Drug Screen, Rapid Stat 06/03/24 12:32 XR chest 1V Stat EKG-12 Lead Stat 06/03/24 13:34 Ammonia (NH3) Stat Complete Blood Count AUTO DIFF Stat Comprehensive Metabolic Panel Stat ETOH [Ethanol (ETOH)] Stat Lipase Stat 06/03/24 15:32 US abdomen limited Stat Discontinued Medications Lactulose (Lactulose 20 Gm/30 Ml Solution) 20 gm PO NOW ONE Stop: 06/03/24 15:33 Last Admin: 06/03/24 15:52 Dose: 20 gm Documented By: ONDINA Vital Signs Vital signs: Vital Signs - 8 hr 06/03/24 12:14 06/03/24 13:09 06/03/24 13:10 Temperature 98.0 F Pulse Rate 79 83 83 Respiratory Rate 16 Blood Pressure 177/81 H Pulse Oximetry 99 97 97 Oxygen Delivery Method Room Air 06/03/24 13:10 06/03/24 13:30 06/03/24 14:00 Temperature Pulse Rate 78 80 Respiratory Rate 12 9 L Blood Pressure 147/65 H Pulse Oximetry 97 98 Oxygen Delivery Method Room Air 06/03/24 14:12 06/03/24 14:12 06/03/24 14:30 Temperature Pulse Rate 78 Respiratory Rate 11 L Blood Pressure 177/79 H 182/81 H Pulse Oximetry 98 Oxygen Delivery Method 06/03/24 14:30 06/03/24 15:00 06/03/24 15:01 Temperature Pulse Rate 77 80 80 Respiratory Rate 11 L 12 16 Blood Pressure Pulse Oximetry 98 98 98 Oxygen Delivery Method 06/03/24 15:01 06/03/24 15:30 06/03/24 15:30 Temperature Pulse Rate 79 Respiratory Rate 11 L Blood Pressure 180/79 H 168/75 H Pulse Oximetry 98 Oxygen Delivery Method 06/03/24 16:00 06/03/24 16:00 06/03/24 16:30 Temperature Pulse Rate 80 Respiratory Rate 17 Blood Pressure 168/74 H 156/66 H Pulse Oximetry 99 Oxygen Delivery Method 06/03/24 16:30 06/03/24 17:00 06/03/24 17:09 Temperature Pulse Rate 79 105 H 92 H Respiratory Rate 11 L 14 18 Blood Pressure Pulse Oximetry 98 99 Oxygen Delivery Method 06/03/24 17:09 06/03/24 17:30 06/03/24 17:30 Temperature Pulse Rate 81 Respiratory Rate 20 Blood Pressure 119/60 121/60 Pulse Oximetry 100 Oxygen Delivery Method 06/03/24 18:00 06/03/24 18:01 06/03/24 18:01 Temperature Pulse Rate 93 H 100 H Respiratory Rate 25 H 24 Blood Pressure 167/78 H Pulse Oximetry 99 99 Oxygen Delivery Method 06/03/24 18:20 06/03/24 18:20 06/03/24 18:30 Temperature Pulse Rate 86 Respiratory Rate 12 Blood Pressure 126/58 L 133/60 Pulse Oximetry 98 Oxygen Delivery Method 06/03/24 18:30 Temperature Pulse Rate 81 Respiratory Rate 11 L Blood Pressure Pulse Oximetry 98 Oxygen Delivery Method Room Air MDM - Altered Mental Status Lab Data 06/03/24 13:34 06/03/24 13:34 Labs: Lab Results 06/03/24 06/03/24 06/03/24 Range/Units 12:31 12:31 13:34 WBC 3.8 L (4.5-11.0) X10^3/uL RBC 3.29 L (4.5-5.9) X10^6/uL Hgb 11.0 L (13.5-17.5) g/dL Hct 32.5 L (41-53) % MCV 98.8 (80-100) fL MCH 33.3 (26-34) PG MCHC 33.7 (30-36) % RDW 16.1 H (11.6-14.8) % Plt Count 111 L (150-400) X10^3/uL Neut % (Auto) 49.9 L (50-75) % Lymph % (Auto) 28.9 (25-40) % [place] % (Auto) 9.7 (3-14) % Eos % (Auto) 10.6 H (2-4) % Baso % (Auto) 0.9 (0-2) % Neut # (Auto) 1900 (7340-2634) /uL Lymph # (Auto) 1100 (9438-2381) /uL [place] # (Auto) 400 (0-900) /uL Eos # (Auto) 400 (0-450) /uL Baso # (Auto) 0 (0-100) /uL Sodium 137 (137-145) mmol/L Potassium 3.9 (3.4-5.1) mmol/L Chloride 109 H (98-107) mmol/L Carbon Dioxide 23 (22-32) mmol/L BUN 27 H (9-20) mg/dL Creatinine 1.09 (0.66-1.25) mg/dL Estimated GFR > 60 (>60) mL/min BUN/Creatinine Ratio 24.8 H (6-22) Glucose 113 H (80-110) mg/dL Calcium 10.7 H (8.4-10.2) mg/dL Total Bilirubin 1.4 H (0.2-1.3) mg/dL AST 119 H (17-59) IU/L ALT 52 H (<50) IU/L Alkaline Phosphatase 120 (38-126) U/L Ammonia 63 H (9-30) umol/L Total Protein 6.9 (6.3-8.2) g/dL Albumin 3.5 (3.5-5.0) g/dL Globulin 3.4 (1.7-4.1) g/dL Albumin/Globulin Ratio 1.0 (1.0-2.8) Lipase 256 (23-300) U/L Urine Color Yellow Urine Appearance Clear Urine pH 6.5 Normal (4.5-8.0) Ur Specific [place] 1.015 (1.000-1.035) Urine Protein Negative (Negative) Urine Glucose (UA) Negative (Negative) g/dL Urine Ketones Negative (NEGATIVE) Urine Occult Blood Trace-intact (Negative) Urine Nitrate Negative (Negative) Urine Bilirubin Negative (NEGATIVE) Urine Urobilinogen 0.2 (0.2) E.U./dL Ur Leukocyte Esterase Negative (NEGATIVE) Urine RBC None seen (0-5/HPF) Urine WBC 0-1/hpf (0-5/HPF) Ur Squamous Epith Cells None seen (0-5/HPF) Urine Bacteria None seen (None) Ur Culture Indicated? Cult not indicated Vol Urine Centrifuged 10ml (spun) U Opiates 300ng/mL cut Negative (Negative) Ur Oxycodone Screen Negative (Negative) Urine Methadone Screen Negative (Negative) Ur Barbiturates Screen Negative (Negative) U Tricyclic Antidepress Positive H (Negative) Ur Phencyclidine Scrn Negative (Negative) Ur Amphetamines Screen Negative (Negative) U Methamphetamines Scrn Negative (Negative) Ur MDMA Scrn (Ecstasy) Negative (Negative) U Benzodiazepines Scrn Negative (Negative) Urine Cocaine Screen Negative (Negative) U Marijuana (THC) Screen Negative (Negative) Urine Specific [place] Normal (Normal) Ethyl Alcohol < 10 ( - 10) mg/dL Ur Creatinine Normal (Normal) Imaging Data Chest x-ray: Radiologist's Impression: Close Chest X-Ray (Signed) Hernan Diaz - 06/03/[address] (Signed) Jocelyn Johnson - 12/09/23 Chest X-Ray (Signed) Jocelyn Johnson - 12/09/23 Outside Echo 09/01/23 Head/Neck CTA (Signed) Julius Zhou - 11/10/22 Chest X-Ray (Signed) Julius Zhou - 11/09/22 Telemetry Strips 11/09/22 Launch?[place] [address] XRay Report Signed Patient: Rosas Vicente MR#: [id number] : 1950 Acct:[id number] Age/Sex: 73 / M Date of Service: 06/03/24 Loc: ED Accession Number: [id number] Procedure: XR chest 1V Ordering Provider: Carmelina Song D.O. PROCEDURE: XR CHEST 1V INDICATIONS: altered mental status TECHNIQUE: One view of the chest was acquired. COMPARISON: [facility], CR, XR CHEST 1V, 12/09/2023, 12:01. [facility], CR, XR CHEST 1V, 11/09/2022, 23:29. FINDINGS: Surgical changes and devices: None. Lungs and pleura: Right basilar airspace opacity silhouetting the medial right heart border. Mediastinum: Mediastinal contours appear normal. Heart size is normal. Bones and chest wall: No suspicious bony lesions. Overlying soft tissues appear unremarkable. IMPRESSION: Medial right middle lobe airspace opacity, could represent atelectasis, infection or aspiration. Dictated by: Hernan Diaz M.D. on 06/03/2024 at 13:12 Approved by: Hernan Diaz M.D. on 06/03/2024 at 13:13 ECG Data Attestation: I personally reviewed and interpreted this ECG as follows: Prior ECG tracings: available for review Interpretation: Sinus rhythm left axis deviation LVH, rate 83 SD 162 QRS of 120 QTC of 488. Patient has prior from 11/10/2022 appears similar, also has EKG from 12/09/2023 that had more PVCs present then today. Overall ST segments appear fairly similar. MDM Narrative Medical decision making narrative: Labs show white count of 3.8 hemoglobin of 11 platelets of 111 patient has similar pancytopenia in 12/09/2023 with chronic anemia in October of 2022 as well as thrombocytopenia. White count at that time was 4.5. INR is 1.1. Sodium is 137 potassium 3.9 chloride 109 CO2 is 23 BUN 27 creatinine 1.09 with a glucose of 113 calcium is 10.7, bilirubin is 1.14 with a AST of 119 ALT of 52, ammonia of 63. UDS positive for tricyclics. UA shows 1 white cell no bacteria no like nitrates no leukocyte esterase, no RBCs. No squamous. Chest x-ray shows medial right middle lobe airspace opacity could represent atelectasis infection or areas aspiration. EKG shows left axis deviation UA is negative. U tox positive for tricyclics. ETOH is less than 10, US abd: Coarsely echogenic liver parenchyma may represent hepatic steatosis versus other type of metabolic liver disease such as cirrhosis, hepatomegaly, hepatofugal flow seen with the pain main portal vein gallbladder is surgically absent no biliary ductal dilation. Patient was given lactulose here in the department,. He is pleasantly confused but conversant. No asterixis. Family does note some shaking at home he has had some difficulty with ambulation but been able to walk. 73-year-old male presents for complaint of altered mental status patient has elevated ammonia, elevated bilirubin and AST ALT slightly elevated as well. Lipase is normal. Suspect hepatic encephalopathy. Patient has reported known history of cirrhosis. Spoke with Dr. Gaona hospitalist who accepts. Discharge Plan Departure Patient Disposition: Admitted As Inpatient Clinical Impression: Metabolic encephalopathy Admit Date/Time: 06/03/24 18:40
[2024-06-03 15:22] LABS: Lipase 256 U/L (23-300)
[2024-06-03 15:23] LABS: Ethanol (ETOH) < 10 mg/dL
--- NOTE | 2024-06-03 15:32 | DI.US.S_ITS ---
PROCEDURE: US ABDOMEN LIMITED INDICATIONS: liver failure, hx cirrhosis, elevated lfts TECHNIQUE: Real-time scanning was performed of the abdominal and retroperitoneal organs, with image documentation. COMPARISON: None. FINDINGS: Liver: Liver is enlarged and measures 18.6 cm in length. Coarsely echogenic liver parenchyma is seen. No discrete hepatic lesion. Hepatofugal flow is seen within patent main portal vein. Gallbladder: Gallbladder is surgically absent. Biliary ducts: Intrahepatic bile ducts are non-dilated. Extrahepatic bile duct caliber measures 4.9 mm. Normal is 6-7 mm or less in diameter, or 10 mm or less post-cholecystectomy. Pancreas: Visualized portions of the pancreas are sonographically normal. Miscellaneous: No free abdominal fluid. IMPRESSION: Coarsely echogenic liver parenchyma which may represent hepatic steatosis versus other type of metabolic liver disease such as cirrhosis. No definite hepatic lesion. Hepatomegaly. Hepatofugal flow is seen within patent main portal vein. Gallbladder is surgically absent. No biliary ductal dilatation. Dictated by: Edi Pedro M.D. on 06/03/2024 at 18:24 Approved by: Edi Pedro M.D. on 06/03/2024 at 18:25
[2024-06-03] MEDS: LACTULOSE 20 GM/30 ML SOLUTION PO ×2 (15:52→21:25)
[2024-06-03] MEDS: HEPARIN 5,000 UNIT/ML VIAL 5000 UNIT SUBCUT (21:26)
[2024-06-03] MEDS: GABAPENTIN 300 MG CAPSULE 1200 MG PO (21:26)
[2024-06-03] MEDS: glipiZIDE 5 MG TABLET PO (21:26)
[2024-06-03] MEDS: hydrOXYzine HCL 25 MG TABLET PO (21:26)
[2024-06-03] MEDS: METFORMIN HCL 500 MG TABLET 1000 MG PO (21:26)
[2024-06-03 23:30] LABS: Magnesium 1.8 mg/dL (1.6-2.3)
[2024-06-04] VITALS (21 sets, daily range): BP systolic 94–133; BP diastolic 51–60; PULSE 71–93; RESP 10–54; TEMP 36.8; O2SAT 93–99
[2024-06-04] MEDS: TRAMADOL 50 MG TABLET PO (00:24)
[2024-06-04] MEDS: ONDANSETRON 4 MG ODT PO (01:35)
[2024-06-04 05:01] LABS: Add Manual Diff / Slide Review NO; Basophils Absolute Auto 0 /uL (0-100); Basophils Percent Auto 0.7 % (0-2); Eosinophils Absolute Auto 300 /uL (0-450); Eosinophils Percent Auto 7.9 % (2-4); Hematocrit 29.3 % (41-53); Lymphocytes Absolute Auto 1300 /uL (1100-4500); Lymphocytes Percent Auto 33.8 % (25-40); Mean Corpuscular HGB Conc 34.2 % (30-36); Mean Corpuscular Hemoglobin 33.6 PG (26-34); Mean Corpuscular Volume 98.2 fL (80-100); Monocytes Absolute Auto 500 /uL (0-900); Neutrophils Absolute Auto 1800 /uL (1500-7000); Neutrophils Percent Auto 45.6 % (50-75); Platelet Count 97 X10^3/uL (150-400); Red Blood Cell Count 2.99 X10^6/uL (4.5-5.9); Red Cell Distribution Width 16.2 % (11.6-14.8); White Blood Cell Count 3.8 X10^3/uL (4.5-11.0)
[2024-06-04 05:12] LABS: Alanine Aminotransferase 46 IU/L (<50); Alkaline Phosphatase 103 U/L (38-126); Aspartate Aminotransferase 94 IU/L (17-59); BUN Creatinine Ratio 22.6 (6-22); Bilirubin Total 1.1 mg/dL (0.2-1.3); Blood Urea Nitrogen 30 mg/dL (9-20); Calcium 10.9 mg/dL (8.4-10.2); Carbon Dioxide 22 mmol/L (22-32); Chloride 109 mmol/L (98-107); Estimated Glomerular Filt Rate 57 mL/min (>60); Globulin 2.9 g/dL (1.7-4.1); Glucose 79 mg/dL (80-110); HEMOLYSIS < 15 (0-50); Potassium 3.7 mmol/L (3.4-5.1); Sodium 140 mmol/L (137-145); Total Protein 5.9 g/dL (6.3-8.2)
[2024-06-04] MEDS: PANTOPRAZOLE DR 20 MG TABLET PO (06:12)
[2024-06-04] MEDS: LEVOTHYROXINE 100 MCG TABLET PO (06:12)
--- NOTE | 2024-06-04 06:31 | PC.NURSE ---
pt admitted at shift change last evening; Pt oriented x 4 but forgetful; bilateral ankles/shins with erythema; scattered scabbing and bruising; pt has been restless off and on all night
--- NOTE | 2024-06-04 07:00 | P.HP_ITS ---
History of Present Illness History of Present Illness Date Patient Seen: 06/03/24 Time Patient Seen: 20:30 Chief complaint: AMS Narrative: 73 y/o with PMH of liver cirrhosis, presented after he developed significant disbalance causing him to repeatedly fall, w/o having significant injuries. He became foggy, forgetful, still is, feels confused. ED workup shows hepatic encephalopathy. He was placed in observation for lactulose, PT assessment. He lives with his who is unable to help him get up after he falls. [facility] Medical History (Updated 06/04/24 @ 07:08 by Steven Cancino MD) GERD (gastroesophageal reflux disease) Gout Hypothyroidism Diabetic peripheral neuropathy Diabetes type 2, controlled Hypertriglyceridemia Thoracic back pain Venous stasis ulcer Anemia Hypertension Heart murmur, systolic Dermatitis Social History household members: spouse Smoking Status: Former smoker alcohol intake: never Meds Home Medications and Allergies Home Medications Medication Instructions Recorded Confirmed Type allopurinol 300 mg tablet 300 mg PO DAILY 08/24/23 06/03/24 History amitriptyline 25 mg tablet 25 mg PO DAILY 08/24/23 06/03/24 History atorvastatin 40 mg tablet 40 mg PO DAILY 08/24/23 06/03/24 History ferrous sulfate 325 mg (65 mg 325 mg PO DAILY 08/24/23 06/03/24 History iron) tablet gabapentin 300 mg capsule 1,200 mg PO BEDTIME 08/24/23 06/03/24 History glipizide 5 mg tablet 5 mg PO BID 08/24/23 06/03/24 History hydroxyzine HCl 25 mg tablet 25 mg PO BEDTIME PRN Sleep 08/24/23 06/03/24 History levothyroxine 100 mcg capsule 100 mcg PO DAILY 08/24/23 06/03/24 History metformin 500 mg tablet 1,000 mg PO BID 08/24/23 06/03/24 History omeprazole 20 mg capsule,delayed 20 mg PO DAILY 08/24/23 06/03/24 History release tramadol 50 mg tablet 50 mg PO Q6H PRN Pain (Scale Score 08/24/23 06/03/24 History 4-6) peg 3350-sod sulf,vjgwo-nvd-ocv 1,000 ml PO DIRECTED #2,000 mL 10/12/23 06/03/24 Rx 178.7-7.3-0.5-1.12-0.9 gram oral soln (Suflave) Allergies Allergy/AdvReac Type Severity Reaction Status Date / Time Penicillins Allergy Intermediate Rash Verified 12/09/23 11:43 Review of Systems Review of Systems Narrative: partial, confused and encephalopathic denies abdominal pain Exam Vital Signs (past 8 hours): - 06/04/24 01:39 Pulse Rate 80 Respiratory Rate 21 Blood Pressure 133/60 Pulse Oximetry 95 Oxygen Flow Rate 0 Oxygen Delivery Method Room Air Oxygen Flow Rate 0 Narrative Exam Narrative: in no distress Resp Other: normal respiratory effort Cardio Other: RRR GI Other: w/o distension, obese Skin Other: not jaundiced Psych Other: encephalopathic Objective Labs 06/04/24 04:20 06/04/24 04:20 Labs: Laboratory Results - last 24 hr 06/03/24 06/03/24 06/03/24 12:31 12:31 13:34 WBC 3.8 L RBC 3.29 L Hgb 11.0 L Hct 32.5 L MCV 98.8 MCH 33.3 MCHC 33.7 RDW 16.1 H Plt Count 111 L Neut % (Auto) 49.9 L Lymph % (Auto) 28.9 [place] % (Auto) 9.7 Eos % (Auto) 10.6 H Baso % (Auto) 0.9 Neut # (Auto) 1900 Lymph # (Auto) 1100 [place] # (Auto) 400 Eos # (Auto) 400 Baso # (Auto) 0 Sodium 137 Potassium 3.9 Chloride 109 H Carbon Dioxide 23 BUN 27 H Creatinine 1.09 Estimated GFR > 60 BUN/Creatinine Ratio 24.8 H Glucose 113 H Calcium 10.7 H Magnesium 1.8 Total Bilirubin 1.4 H AST 119 H ALT 52 H Alkaline Phosphatase 120 Ammonia 63 H Total Protein 6.9 Albumin 3.5 Globulin 3.4 Albumin/Globulin Ratio 1.0 Lipase 256 Urine Color Yellow Urine Appearance Clear Urine pH 6.5 Normal Ur Specific [place] 1.015 Urine Protein Negative Urine Glucose (UA) Negative Urine Ketones Negative Urine Occult Blood Trace-intact Urine Nitrate Negative Urine Bilirubin Negative Urine Urobilinogen 0.2 Ur Leukocyte Esterase Negative Urine RBC None seen Urine WBC 0-1/hpf Ur Squamous Epith Cells None seen Urine Bacteria None seen Ur Culture Indicated? Cult not indicated Vol Urine Centrifuged 10ml (spun) U Opiates 300ng/mL cut Negative Ur Oxycodone Screen Negative Urine Methadone Screen Negative Ur Barbiturates Screen Negative U Tricyclic Antidepress Positive H Ur Phencyclidine Scrn Negative Ur Amphetamines Screen Negative U Methamphetamines Scrn Negative Ur MDMA Scrn (Ecstasy) Negative U Benzodiazepines Scrn Negative Urine Cocaine Screen Negative U Marijuana (THC) Screen Negative Urine Specific [place] Normal Ethyl Alcohol < 10 Ur Creatinine Normal 06/04/24 04:20 WBC 3.8 L RBC 2.99 L Hgb 10.0 L Hct 29.3 L MCV 98.2 MCH 33.6 MCHC 34.2 RDW 16.2 H Plt Count 97 L Neut % (Auto) 45.6 L Lymph % (Auto) 33.8 [place] % (Auto) 12.0 Eos % (Auto) 7.9 H Baso % (Auto) 0.7 Neut # (Auto) 1800 Lymph # (Auto) 1300 [place] # (Auto) 500 Eos # (Auto) 300 Baso # (Auto) 0 Sodium 140 Potassium 3.7 Chloride 109 H Carbon Dioxide 22 BUN 30 H Creatinine 1.33 H Estimated GFR 57 L BUN/Creatinine Ratio 22.6 H Glucose 79 L Calcium 10.9 H Magnesium Total Bilirubin 1.1 AST 94 H ALT 46 Alkaline Phosphatase 103 Ammonia Total Protein 5.9 L Albumin 3.0 L Globulin 2.9 Albumin/Globulin Ratio 1.0 Lipase Urine Color Urine Appearance Urine pH Ur Specific [place] Urine Protein Urine Glucose (UA) Urine Ketones Urine Occult Blood Urine Nitrate Urine Bilirubin Urine Urobilinogen Ur Leukocyte Esterase Urine RBC Urine WBC Ur Squamous Epith Cells Urine Bacteria Ur Culture Indicated? Vol Urine Centrifuged U Opiates 300ng/mL cut Ur Oxycodone Screen Urine Methadone Screen Ur Barbiturates Screen U Tricyclic Antidepress Ur Phencyclidine Scrn Ur Amphetamines Screen U Methamphetamines Scrn Ur MDMA Scrn (Ecstasy) U Benzodiazepines Scrn Urine Cocaine Screen U Marijuana (THC) Screen Urine Specific [place] Ethyl Alcohol Ur Creatinine Assessment & Plan Assessment and plan (1) Hepatic encephalopathy: Status: Acute (2) Depression: Status: Acute (3) GERD (gastroesophageal reflux disease): Status: Acute (4) Diabetes type 2, controlled: Status: Acute (5) Hypothyroidism: Status: Acute (6) Anemia: Status: Acute Assessment & Plan narrative: Hepatic Encephalopathy - liver cirrhosis - started lactulose for 2 BMs a day at least Depression, Anxiety - Elavil, hydroxyzine GERD - PPI DM - metformin, glipizide - SS, CCD Hypothyroidism - levothyroxine Anemia - Fe Gout - allopurinol [place] - PT assessment DVT prophylaxis - heparin Time-Based Coding :: [TOTAL MINUTES] spent with patient and on the chart (including review of chart, obtaining history, exam, reviewing outside data, placing orders, documenting exam and treatment plan, and counseling patient) on [DATE]. Quality VTE Deep Vein Thrombosis/Pulmonary Embolism Present on Admission: No
[2024-06-04] MEDS: allopurinoL 100 MG TABLET 300 MG PO (09:09)
[2024-06-04] MEDS: FERROUS SULFATE 325 MG TABLET PO (09:10)
[2024-06-04] MEDS: HEPARIN 5,000 UNIT/ML VIAL 5000 UNIT SUBCUT ×2 (09:10→21:25)
[2024-06-04] MEDS: METFORMIN HCL 500 MG TABLET 1000 MG PO ×2 (09:10→17:34)
[2024-06-04] MEDS: LACTULOSE 20 GM/30 ML SOLUTION PO ×2 (09:11→21:25)
--- NOTE | 2024-06-04 11:50 | PT.IIE ---
Current Diagnoses Anemia, unspecified (06/03/24) Hypothyroidism, unspecified (06/03/24) Type 2 diabetes mellitus without complications (06/03/24) Depression, unspecified (06/03/24) Gastro-esophageal reflux disease without esophagitis (06/03/24) Hepatic encephalopathy (06/03/24) Medical History (Last Updated 06/04/24 @ 07:08 by Steven Cancino MD) Anemia Dermatitis Diabetes type 2, controlled Diabetic peripheral neuropathy GERD (gastroesophageal reflux disease) Gout Heart murmur, systolic Hypertension Hypertriglyceridemia Hypothyroidism Thoracic back pain Venous stasis ulcer Physical Therapy Inpatient Evaluation/Re-Eval M1 PT/OT-IP Prior Functional Status Start: 06/04/24 13:19 Freq: NEEDED Status: Active Protocol: Document 06/04/24 11:50 AB (Rec: 06/04/24 13:31 AB [id number]) Medical Review Prior Functional Status Medical History Reviewed Yes Communication pt very sleepy; able to answer some questions Mobility and Gait spouse provided most of pt's PLOF and home set up stated that pt was modified independent with all mobilities and ambulation without AD but has started getting weak for the last 2 weeks and was furniture cruising and bouncing off the wall for steadiness. Social History Household Members spouse Living Arrangements House Number of Floors (Floors) One Floor Number of Stairs To Enter/Railing? ramp to enter Home Environment Standard Height Toilet,Walk in Shower,Ramp Home Equipment Shower Seat with Backrest,Hand Held Shower,Grab Bars In Shower Additional Social History Comment pt's spouse will not be able to assist pt due to her medical conditions M2 PT-IP Current Condition Start: 06/04/24 13:19 Freq: NEEDED Status: Active Protocol: Document 06/04/24 11:50 AB (Rec: 06/04/24 13:31 AB [id number]) Physical Therapy Current Condition Current Condition Evaluation Date 06/04/24 Treatment Diagnosis hepatic encephalopathy; difficulty in walking Onset Date M3 PT-IP Subjective Start: 06/04/24 13:19 Freq: NEEDED Status: Active Protocol: Document 06/04/24 11:50 AB (Rec: 06/04/24 13:31 AB [id number]) Subjective Physical Therapy Visit Type Type Initial Evaluation Visit Start Time 11:50 Visit Stop Time 12:15 Number of GERMAN INSTRUCTOR Visits 0 Physical Therapy Visit Comments Patient Comments agreeable to do PT Therapy Pain Assessment Pain Present Pain Present Denied Pain M4 PT-IP Mobility and Gait Start: 06/04/24 13:19 Freq: NEEDED Status: Active Protocol: Document 06/04/24 11:50 AB (Rec: 06/04/24 13:31 AB [id number]) PT-Transfer Assessment Sit to and From Stand Sit to and from Stand Maximum Assistance,2 Person Assistance,Use of Upper Extremities Equipment Transfer Assistive Device Gait Belt,Front Wheeled Walker Orthotic/Prosthetic Devices or Brace: No Comments Mobility Comments pt sitting on the chair and lethargic. per NAC, pt has been lethargic since morning. pt able to respond to some questions but needed continued cues. spouse in room and provided most of pt's PLOF and home set up. BP: 94/47. pt completed sit to stand max A x 2 and max cues. required 3 attempts to stand. presents with LE shakiness and knee buckling. pt was able to stand using FWW for support max A x 2 with intermittent knee jerking. cued pt to stabilize and activate quads. pt completed standing marching x 4. unable to clear off floor but able to weight shift. pt requested to sit back on chair max A x 2 for controlled descent. positioned pt on the chair. call light and table placed within reach. Gait Assessment Comments Gait Comments unable at this time M5 PT-IP Objective Assessments Start: 06/04/24 13:19 Freq: NEEDED Status: Active Protocol: Document 06/04/24 11:50 AB (Rec: 06/04/24 13:31 AB [id number]) Orientation Orientation/Cognition Level of Alertness Lethargic Safety Awareness Decreased Safety Awareness Strength Lower Extremity Strength Assessment Bilaterally Impaired Hip 3-/5 Knee 3+/5 Muscle Tone Muscle Tone WNL Yes M6 PT-IP Treatment Start: 06/04/24 13:19 Freq: NEEDED Status: Active Protocol: Document 06/04/24 11:50 AB (Rec: 06/04/24 13:31 AB [id number]) Physical Therapy Treatment Education Education Provided Safety M7 PT-IP Assessment and Plan Start: 06/04/24 13:19 Freq: NEEDED Status: Active Protocol: Document 12/07/24 11:50 AB (Rec: 06/04/24 13:31 AB [id number]) PT Summary Assessment and Plan Potential Rehabilitation Potential Fair Status of Condition at Evaluation Unstable Summary Impairments Pain,ROM,Strength,Balance, Coordination,Sensation,Tone, Cognition,Bed Mobility, Transfers,Gait,Activity Tolerance Assessment Summary pt is a 73 y/o M who presented to the ED for altered mental status. pt admitted for hepatic encephalopathy. spouse stated that pt has been getting weaker for the past 2 weeks. pt requiring max A x 2 for sit to stand and max A x 2 for standing balance using fWW for support. pt unable to tolerate much activity. pt will require SNF rehab to improve overall strength and function. will continue to assess. Goals Bed Mobility Goal Minimal Assistance Transfer Goal Minimal Assistance,Front Wheeled Walker Gait Goal Minimal Assistance,Front Wheel Walker Gait Distance 50 Other Goals improve bed mobility, transfers, ambulation using FWW ~ 150 ft SBA Days to Meet Goals 10 Frequency of Treatment Frequency Of Treatment Once a Day Treatment Plan Physical Therapy Treatment Plan Bed Mobility Training,Transfer Training,Gait Training, Therapeutic Exercise,Balance Retraining,Discharge Planning, Hot or Cold Pack,Neuromuscular Re-ed,Coordination Retraining ,Manual Therapy Precautions Other Precautions falls Recommendations To Nursing Amount of Assist Needed Mechanical Lift Discharge Recommendations PT Discharge Recommendations SNF Rehab Transportation Needs at Discharge Wheelchair/Cabulance,Stretcher /Ambulance
[2024-06-04 12:10] LABS: MRSA (Nasal) PCR NOT DETECTED (Not Detect)
--- NOTE | 2024-06-04 12:33 | PC.NURSE ---
Day shift: Dr Moseley made aware of BP of 95/55. Encourage Pt to drink PO fluids. Will continue to monitor.
--- NOTE | 2024-06-04 13:26 | P.PN_ITS ---
Subjective Subjective Date Patient Seen: 06/04/24 Time Patient Seen: 08:05 Interval history: Narrative: 73 y/o with PMH of liver cirrhosis, presented after he developed significant disbalance causing him to repeatedly fall, w/o having significant injuries. He became foggy, forgetful, still is, feels confused. ED workup shows hepatic encephalopathy. He was placed in observation for lactulose, PT assessment. He lives with his who is unable to help him get up after he falls. Interval history: The patient remains confused this morning. He is seen with his and brother at bedside who note that he has not yet back to baseline. He has had a tendency to this in the past year. Etiology of cirrhosis is unclear, without a significant alcohol history. He states the month is July and is not sure of his location. Family states that he normally is very clear and oriented. Exam Vital Signs (past 8 hours): - 06/04/24 08:00 06/04/24 08:30 06/04/24 12:15 Temperature 98.3 F 98.3 F Pulse Rate 80 71 Respiratory Rate 18 22 Blood Pressure 112/56 L 94/51 L Pulse Oximetry 95 97 Oxygen Delivery Method Room Air Oxygen Delivery Method Room Air Oxygen Flow Rate 0 Narrative Exam Narrative: GENERAL: This is a well-nourished, well-developed patient, in no apparent distress. HEAD: Atraumatic. Normocephalic. No temporal or scalp tenderness. EYES: Pupils equal round and reactive. Extraocular motions intact. No scleral icterus. No injection or drainage. ENT: Mucous membranes pink and moist. NECK: Trachea midline. No JVD, bruits or lymphadenopathy. Supple, nontender, no meningeal signs. CARDIOVASCULAR: Regular rate and rhythm without murmurs, gallops, or rubs. RESPIRATORY: Clear to auscultation. GASTROINTESTINAL: Abdomen soft, non-tender, nondistended. EXTREMITIES: No clubbing, cyanosis, or edema. BACK: Nontender without deformity or crepitance. No flank tenderness. NEUROLOGIC: Alert, oriented to person, speech fluent, full upper and lower motor strength, no focal deficits evident. DERMATOLOGIC: No rashes or skin lesions. Objective Imaging US - abdomen: Radiologist's impression: Coarsely echogenic liver parenchyma which may represent hepatic steatosis versus other type of metabolic liver disease such as cirrhosis. No definite hepatic lesion. Hepatomegaly. Hepatofugal flow is seen within patent main portal vein. Gallbladder is surgically absent. No biliary ductal dilatation. Labs 06/04/24 04:20 06/04/24 04:20 Labs: Laboratory Results - last 24 hr 06/03/24 06/03/24 06/03/24 12:31 12:31 13:34 WBC 3.8 L RBC 3.29 L Hgb 11.0 L Hct 32.5 L MCV 98.8 MCH 33.3 MCHC 33.7 RDW 16.1 H Plt Count 111 L Neut % (Auto) 49.9 L Lymph % (Auto) 28.9 [place] % (Auto) 9.7 Eos % (Auto) 10.6 H Baso % (Auto) 0.9 Neut # (Auto) 1900 Lymph # (Auto) 1100 [place] # (Auto) 400 Eos # (Auto) 400 Baso # (Auto) 0 Sodium 137 Potassium 3.9 Chloride 109 H Carbon Dioxide 23 BUN 27 H Creatinine 1.09 Estimated GFR > 60 BUN/Creatinine Ratio 24.8 H Glucose 113 H Calcium 10.7 H Magnesium 1.8 Total Bilirubin 1.4 H AST 119 H ALT 52 H Alkaline Phosphatase 120 Ammonia 63 H Total Protein 6.9 Albumin 3.5 Globulin 3.4 Albumin/Globulin Ratio 1.0 Lipase 256 Urine Color Yellow Urine Appearance Clear Urine pH 6.5 Normal Ur Specific [place] 1.015 Urine Protein Negative Urine Glucose (UA) Negative Urine Ketones Negative Urine Occult Blood Trace-intact Urine Nitrate Negative Urine Bilirubin Negative Urine Urobilinogen 0.2 Ur Leukocyte Esterase Negative Urine RBC None seen Urine WBC 0-1/hpf Ur Squamous Epith Cells None seen Urine Bacteria None seen Ur Culture Indicated? Cult not indicated Vol Urine Centrifuged 10ml (spun) Nasal Screen MRSA (PCR) U Opiates 300ng/mL cut Negative Ur Oxycodone Screen Negative Urine Methadone Screen Negative Ur Barbiturates Screen Negative U Tricyclic Antidepress Positive H Ur Phencyclidine Scrn Negative Ur Amphetamines Screen Negative U Methamphetamines Scrn Negative Ur MDMA Scrn (Ecstasy) Negative U Benzodiazepines Scrn Negative Urine Cocaine Screen Negative U Marijuana (THC) Screen Negative Urine Specific [place] Normal Ethyl Alcohol < 10 Ur Creatinine Normal 06/03/24 06/04/24 19:42 04:20 WBC 3.8 L RBC 2.99 L Hgb 10.0 L Hct 29.3 L MCV 98.2 MCH 33.6 MCHC 34.2 RDW 16.2 H Plt Count 97 L Neut % (Auto) 45.6 L Lymph % (Auto) 33.8 [place] % (Auto) 12.0 Eos % (Auto) 7.9 H Baso % (Auto) 0.7 Neut # (Auto) 1800 Lymph # (Auto) 1300 [place] # (Auto) 500 Eos # (Auto) 300 Baso # (Auto) 0 Sodium 140 Potassium 3.7 Chloride 109 H Carbon Dioxide 22 BUN 30 H Creatinine 1.33 H Estimated GFR 57 L BUN/Creatinine Ratio 22.6 H Glucose 79 L Calcium 10.9 H Magnesium Total Bilirubin 1.1 AST 94 H ALT 46 Alkaline Phosphatase 103 Ammonia Total Protein 5.9 L Albumin 3.0 L Globulin 2.9 Albumin/Globulin Ratio 1.0 Lipase Urine Color Urine Appearance Urine pH Ur Specific [place] Urine Protein Urine Glucose (UA) Urine Ketones Urine Occult Blood Urine Nitrate Urine Bilirubin Urine Urobilinogen Ur Leukocyte Esterase Urine RBC Urine WBC Ur Squamous Epith Cells Urine Bacteria Ur Culture Indicated? Vol Urine Centrifuged Nasal Screen MRSA (PCR) Not detected U Opiates 300ng/mL cut Ur Oxycodone Screen Urine Methadone Screen Ur Barbiturates Screen U Tricyclic Antidepress Ur Phencyclidine Scrn Ur Amphetamines Screen U Methamphetamines Scrn Ur MDMA Scrn (Ecstasy) U Benzodiazepines Scrn Urine Cocaine Screen U Marijuana (THC) Screen Urine Specific [place] Ethyl Alcohol Ur Creatinine [facility] Medical History (Updated 06/04/24 @ 07:08 by Steven Cancino MD) GERD (gastroesophageal reflux disease) Gout Hypothyroidism Diabetic peripheral neuropathy Diabetes type 2, controlled Hypertriglyceridemia Thoracic back pain Venous stasis ulcer Anemia Hypertension Heart murmur, systolic Dermatitis Social History household members: spouse Smoking Status: Former smoker alcohol intake: never Assessment & Plan Assessment & Plan narrative: Hepatic Encephalopathy - liver cirrhosis - continue lactulose for 2 BMs a day at least Depression, Anxiety - Elavil, hydroxyzine GERD - PPI DM - metformin, glipizide - SS, CCD Hypothyroidism - levothyroxine Anemia - Fe Gout - allopurinol [place] - PT assessment Abnormal chest x-ray - no symptoms to suggest pneumonia, repeat two-view tomorrow DVT prophylaxis - heparin Quality VTE Deep Vein Thrombosis/Pulmonary Embolism Present on Admission: No IH PROFEE Charge codes Subsequent inpatient/observation care: [id number]
--- NOTE | 2024-06-04 14:18 | CM.DANOTE ---
B DCP Assessment note pt is a 73yo M here with hepatic encephalopathy, AMS, frequent falls at home. PCP Shital Lindo Payer Medicare and self pay DRAWING IN MACHINE TENDER reviewed EMR. Per chart, pt lives at home in [facility] with spouse Shital. Local supportive children, including dtr Radha. pt is sharp mentally at baseline, his current confusion is far from his normal. normal ambulates without DME at home. Per hospitalist in morning rounds, etiology of cirrhosis is unclear, no sig alcohol history. Per PT, unable to participate much in therapy. Rec SNF, mechanical lift. Pt anticipated to improve with mobility throughout stay as he improves medically with his hepatic encephalopathy. If SNF, referrals/PASRR needed. 3rd midnight=dc Mon 06/06 if stable. DRAWING IN MACHINE TENDER unable to meet with pt or family today due to triaging needs. P: medical POC continues to develop, SNF vs home with spouse. if SNF referrals needed. CM team will continue to follow closely to coordinate dc. AD [place] Discharge Planning/Care Management CM Discharge Assessment Start: 06/04/24 14:14 Freq: Status: Active Protocol: Document 06/04/24 14:15 (Rec: 06/04/24 14:18 [id number]) Discharge Planning Assessment Assigned Product Finisher AD Fernandes DPOA/Assigned Designee Name dimitris Isaacs Contact Information [phone] Advance Directives? No History Provided By Patient,Medical Record Prior Living Arrangements House Household Members spouse Independent with ADL's Yes Is patient alert and oriented? No Comment A/O at baseline, currently confused Discharge Plan Home Transportation Arrangement home vs SNF. family vs facility transport Review Status In Process Please Provide Date Initial DC 06/04/24 Assessment Was Performed Next Review Type Continued Stay Review
--- NOTE | 2024-06-04 15:41 | PC.NURSE ---
Day shift:Six beat run of V-tavh at approx 1530. Dr Moseley is aware. No new orders. Last BP 100/[address] Moseley aware of this as well.
[2024-06-04] MEDS: AMITRIPTYLINE 25 MG TABLET PO (21:25)
[2024-06-04] MEDS: GABAPENTIN 300 MG CAPSULE 1200 MG PO (21:25)
[2024-06-05] VITALS (60 sets, daily range): BP systolic 74–166; BP diastolic 39–76; PULSE 68–102; RESP 9–49; TEMP 36.4–37.1; O2SAT 85–99
[2024-06-05] MEDS: LEVOTHYROXINE 100 MCG TABLET PO (06:43)
[2024-06-05] MEDS: PANTOPRAZOLE DR 20 MG TABLET PO (06:43)
--- NOTE | 2024-06-05 08:00 | DI.RAD.S_ITS ---
PROCEDURE: XR CHEST 1V INDICATIONS: followup RML infiltrate TECHNIQUE: One view of the chest was acquired. COMPARISON: [facility], CR, XR CHEST 1V, 06/03/2024, 12:53. FINDINGS: Surgical changes and devices: None. Lungs and pleura: Subtle opacity is again seen in right infrahilar region near right heart border. No new area of abnormal airspace opacities. No pleural effusions or pneumothorax. Mediastinum: Mediastinal contours appear normal. Heart size is normal. Bones and chest wall: No suspicious bony lesions. Overlying soft tissues appear unremarkable. IMPRESSION: Stable appearance of subtle opacity in right infrahilar region concerning for small right middle lobe infiltrate versus atelectasis. Finding is not significantly changed from previous study. No pleural effusion or pneumothorax. Dictated by: Edi Pedro M.D. on 06/05/2024 at 9:05 Approved by: Edi Pedro M.D. on 06/05/2024 at 9:06
[2024-06-05] MEDS: allopurinoL 100 MG TABLET 300 MG PO (08:34)
[2024-06-05] MEDS: METFORMIN HCL 500 MG TABLET 1000 MG PO ×2 (08:34→16:41)
[2024-06-05] MEDS: LACTULOSE 20 GM/30 ML SOLUTION PO ×3 (08:34→15:12)
[2024-06-05] MEDS: FERROUS SULFATE 325 MG TABLET PO (08:34)
[2024-06-05] MEDS: HEPARIN 5,000 UNIT/ML VIAL 5000 UNIT SUBCUT ×2 (08:35→20:48)
[2024-06-05] MEDS: cefTRIAXone 1,000 MG in SODIUM CHLORIDE 0.9% 100 ML 200 MG IV (10:55)
--- NOTE | 2024-06-05 11:33 | P.PN_ITS ---
Subjective Subjective Date Patient Seen: 06/05/24 Time Patient Seen: 10:45 Interval history: Narrative: 73 y/o with PMH of liver cirrhosis, presented after he developed significant disbalance causing him to repeatedly fall, w/o having significant injuries. He became foggy, forgetful, still is, feels confused. ED workup shows hepatic encephalopathy. He was placed in observation for lactulose, PT assessment. He lives with his who is unable to help him get up after he falls. Interval history: The patient is less confused, appears oriented to person, time and place. He notes a mild cough this morning. Remains confused this morning. His is not yet here today. Etiology of cirrhosis is unclear, without a significant alcohol history. His last bowel movement was yesterday. Exam Vital Signs (past 8 hours): - 06/05/24 04:00 06/05/24 04:30 06/05/24 04:46 Temperature Pulse Rate 79 79 82 Respiratory Rate 10 L 19 23 Blood Pressure Pulse Oximetry 92 91 85 L Oxygen Delivery Method Oxygen Flow Rate 06/05/24 04:46 06/05/24 04:47 06/05/24 04:47 Temperature Pulse Rate 89 Respiratory Rate 13 Blood Pressure 85/45 L 114/55 L Pulse Oximetry 92 Oxygen Delivery Method Oxygen Flow Rate 06/05/24 04:48 06/05/24 05:00 06/05/24 05:30 Temperature Pulse Rate 84 79 79 Respiratory Rate 18 13 12 Blood Pressure 114/55 L Pulse Oximetry 96 93 94 Oxygen Delivery Method Oxygen Flow Rate 0 06/05/24 06:00 06/05/24 06:30 06/05/24 06:38 Temperature Pulse Rate 75 74 95 H Respiratory Rate 17 12 49 H Blood Pressure Pulse Oximetry 93 92 95 Oxygen Delivery Method Oxygen Flow Rate 06/05/24 07:00 06/05/24 07:18 06/05/24 07:35 Temperature 97.6 F Pulse Rate 72 Respiratory Rate Blood Pressure 117/55 L Pulse Oximetry 98 Oxygen Delivery Method Room Air Oxygen Flow Rate 06/05/24 08:00 06/05/24 08:30 06/05/24 09:00 Temperature Pulse Rate 84 79 86 Respiratory Rate 24 14 17 Blood Pressure Pulse Oximetry Oxygen Delivery Method Oxygen Flow Rate Oxygen Delivery Method Room Air Oxygen Flow Rate 0 Narrative Exam Narrative: GENERAL: This is a well-nourished, well-developed patient, in no apparent distress, lethargic and appears to fall asleep during questioning. EYES: Pupils equal round and reactive. Extraocular motions intact. No scleral icterus. No injection or drainage. ENT: Mucous membranes pink and moist. NECK: Trachea midline. No JVD, bruits or lymphadenopathy. Supple, nontender, no meningeal signs. CARDIOVASCULAR: Regular rate and rhythm without murmurs, gallops, or rubs. RESPIRATORY: Decreased breath sounds bilateral bases, poor respiratory effort, no rhonchi or wheezes. GASTROINTESTINAL: Abdomen soft, non-tender, nondistended. EXTREMITIES: No clubbing, cyanosis, or edema. NEUROLOGIC: Alert, oriented to person, time and place, speech fluent, full upper and lower motor strength, no focal deficits evident. DERMATOLOGIC: No rashes or skin lesions. Objective Imaging Chest x-ray: Radiologist's impression: Stable appearance of subtle opacity in right infrahilar region concerning for small right middle lobe infiltrate versus atelectasis. Finding is not significantly changed from previous study. No pleural effusion or pneumothorax. Labs 06/04/24 04:20 06/04/24 04:20 Labs: Laboratory Results - last 24 hr 06/03/24 19:42 Nasal Screen MRSA (PCR) Not detected [facility] Medical History Anemia Dermatitis Diabetes type 2, controlled Diabetic peripheral neuropathy GERD (gastroesophageal reflux disease) Gout Heart murmur, systolic Hypertension Hypertriglyceridemia Hypothyroidism Thoracic back pain Venous stasis ulcer Social History household members: spouse Smoking Status: Former smoker alcohol intake: never Assessment & Plan Assessment & Plan narrative: Hepatic Encephalopathy - liver cirrhosis, nonalcoholic - increase lactulose to t.i.d. for 2 BMs a day at least - consider possible infectious and hypoglycemic causes of encephalopathy: Treat for pneumonia and stop glipizide Possible right middle lobe pneumonia, community-acquired versus aspiration - add ceftriaxone x7 days and azithromycin x3 days on 06/05/2024 Depression, Anxiety - Elavil, hydroxyzine GERD - PPI DM - metformin, stop glipizide, and remain off at discharge given ongoing risk of hypoglycemia in this patient with hepatic encephalopathy - SS, CCD Hypothyroidism - levothyroxine - check TSH Anemia - continue FeSO4 - check ferritin/iron panel Gout - allopurinol [place] - PT assessment tomorrow when more awake Plan: -increase lactulose to 3 times daily -add ceftriaxone and azithromycin as above -hold off on physical therapy until tomorrow when more awake -check ferritin, iron, TSH -discontinue glipizide indefinitely -DVT prophylaxis - heparin INES: 06/06 or 06/07 Quality VTE Deep Vein Thrombosis/Pulmonary Embolism Present on Admission: No PROFEE Charge codes Subsequent inpatient/observation care: [id number]
[2024-06-05] MEDS: AZITHROMYCIN 500 MG in DEXTROSE 5% IN WATER 250 ML 250 MG IV (11:45)
--- NOTE | 2024-06-05 13:44 | PT-IP ANOTE ---
PT checks on pt twice this afternoon. On second check, ns states need to hold PT today.
--- NOTE | 2024-06-05 13:56 | PC.NURSE ---
Pt's yellow left ring finger ring given to family at bedside due to hand edema.
--- NOTE | 2024-06-05 15:02 | CM.DPNOTE ---
DCP Cont Therapies recommending SNF. Patient improving clinically and cognitively however remains groggy today. Met w/patient, his daughter and granddaughter. Spouse on her way from [place]. Introduced self and role. Family state concern about patient's past medical hx x2 years and lack of insight/etiology from outpatient providers, family worried. Family would like to speak with the hospitalist about potential for transfer to higher level of care. Relayed questions/concerns to Dr Moseley who plans to follow up with family. Discussion about dispo options on hold for now. CM team following clinical course closely. DPOA is patient's spouse Shital. JW
--- NOTE | 2024-06-05 18:25 | PC.NURSE ---
Pt drowsy but awakens easily to voice throughout shift. Remains oriented to all except date. Pt weak and unable to stand at bedside. Lakesha lift utilized to get patient to bedside commode. No BM despite lactulose, provider notified. Family visited bedside, updated.
[2024-06-05] MEDS: LACTULOSE 20 GM/30 ML SOLUTION 30 GM PO ×2 (18:38→20:48)
[2024-06-05] MEDS: GABAPENTIN 300 MG CAPSULE 1200 MG PO (20:48)
[2024-06-05] MEDS: AMITRIPTYLINE 25 MG TABLET PO (20:48)
[2024-06-06] VITALS (56 sets, daily range): BP systolic 111–178; BP diastolic 53–79; PULSE 76–96; RESP 3–34; TEMP 36.6–37; O2SAT 84–98
[2024-06-06 05:03] LABS: Add Manual Diff / Slide Review NO; Basophils Absolute Auto 0 /uL (0-100); Eosinophils Absolute Auto 400 /uL (0-450); Eosinophils Percent Auto 10.5 % (2-4); Hematocrit 31.1 % (41-53); Hemoglobin 10.5 g/dL (13.5-17.5); Lymphocytes Absolute Auto 1200 /uL (1100-4500); Lymphocytes Percent Auto 32.5 % (25-40); Mean Corpuscular HGB Conc 33.7 % (30-36); Mean Corpuscular Hemoglobin 33.2 PG (26-34); Mean Corpuscular Volume 98.5 fL (80-100); Monocytes Absolute Auto 300 /uL (0-900); Monocytes Percent Auto 8.8 % (3-14); Neutrophils Absolute Auto 1800 /uL (1500-7000); Neutrophils Percent Auto 47.2 % (50-75); Platelet Count 98 X10^3/uL (150-400); Red Blood Cell Count 3.16 X10^6/uL (4.5-5.9); Red Cell Distribution Width 16.3 % (11.6-14.8); White Blood Cell Count 3.8 X10^3/uL (4.5-11.0)
[2024-06-06 05:12] LABS: HEMOLYSIS < 15 (0-50)
[2024-06-06 05:13] LABS: BUN Creatinine Ratio 28.4 (6-22); Blood Urea Nitrogen 27 mg/dL (9-20); Calcium 10.8 mg/dL (8.4-10.2); Carbon Dioxide 24 mmol/L (22-32); Chloride 110 mmol/L (98-107); Estimated Glomerular Filt Rate > 60 mL/min (>60); Glucose 105 mg/dL (80-110); HEMOLYSIS < 15 (0-50); Potassium 4.2 mmol/L (3.4-5.1); Sodium 141 mmol/L (137-145)
[2024-06-06 05:17] LABS: Iron 80 ug/dL (49-181)
[2024-06-06 05:27] LABS: Percent Iron Saturation 32 % (20-50); Total Iron Binding Capacity 250 ug/dL (261-462)
[2024-06-06 05:36] LABS: Transferrin 207 mg/dL (206-381)
[2024-06-06 05:47] LABS: Ferritin 48 ng/mL (18-464)
[2024-06-06 05:58] LABS: Thyroid Stimulating Hormone 0.561 uIU/mL (0.47-4.68)
[2024-06-06] MEDS: allopurinoL 100 MG TABLET 300 MG PO (08:39)
[2024-06-06] MEDS: METFORMIN HCL 500 MG TABLET 1000 MG PO ×2 (08:39→17:36)
[2024-06-06] MEDS: FERROUS SULFATE 325 MG TABLET PO (08:39)
[2024-06-06] MEDS: LACTULOSE 20 GM/30 ML SOLUTION 30 GM PO ×2 (08:40→20:23)
[2024-06-06] MEDS: HEPARIN 5,000 UNIT/ML VIAL 5000 UNIT SUBCUT ×2 (08:40→20:23)
[2024-06-06] MEDS: cefTRIAXone 1,000 MG in SODIUM CHLORIDE 0.9% 100 ML 200 MG IV (12:07)
--- NOTE | 2024-06-06 12:42 | PM.PN.1 ---
Subjective Subjective Interval history: Summary: 73 y/o with PMH of liver cirrhosis, presented after he developed significant disbalance causing him to repeatedly fall, w/o having significant injuries. He became foggy, forgetful, still is, feels confused. ED workup shows hepatic encephalopathy. He was placed in observation for lactulose, PT assessment. He lives with his who is unable to help him get up after he falls. Interval history: The patient is less confused, appears oriented to person, time and place. He notes a mild cough this morning. Remains confused this morning. His is not yet here today. Etiology of cirrhosis is unclear, without a significant alcohol history. His last bowel movement was yesterday. S: Patient feels mentally more clear today. He knows where he was and what the month and year are. He does feel very weak in his legs. Exam Vital Signs (past 8 hours): - 06/06/24 05:00 06/06/24 05:30 06/06/24 06:00 Temperature Pulse Rate 80 85 79 Respiratory Rate 11 L 11 L 10 L Blood Pressure Pulse Oximetry Oxygen Delivery Method 06/06/24 06:30 06/06/24 07:00 06/06/24 07:30 Temperature Pulse Rate 78 78 89 Respiratory Rate 10 L 10 L 24 Blood Pressure Pulse Oximetry Oxygen Delivery Method 06/06/24 07:51 06/06/24 07:51 06/06/24 08:00 Temperature 97.8 F Pulse Rate 82 Respiratory Rate 15 Blood Pressure 111/53 L Pulse Oximetry 96 Oxygen Delivery Method Room Air 06/06/24 08:00 06/06/24 08:30 06/06/24 09:00 Temperature Pulse Rate 86 79 86 Respiratory Rate 21 10 L 15 Blood Pressure Pulse Oximetry Oxygen Delivery Method Oxygen Delivery Method Room Air Oxygen Flow Rate 0 Narrative Exam Narrative: No acute distress, fluent speech. Slightly delayed answers to questions. Slightly flat affect. Lungs are clear with normal rate and effort. Heart is regular without murmur. Abdomen is distended, non-tender. No leg edema. Objective Imaging Multiple studies:: Radiologist's impression: Chest x-ray June 05: Stable appearance of subtle opacity in right infrahilar region concerning for small right middle lobe infiltrate versus atelectasis. Finding is not significantly changed from previous study. No pleural effusion or pneumothorax. Abdomen ultrasound Misael 6: Coarsely echogenic liver parenchyma which may represent hepatic steatosis versus other type of metabolic liver disease such as cirrhosis. No definite hepatic lesion. Hepatomegaly. Hepatofugal flow is seen within patent main portal vein. Gallbladder is surgically absent. No biliary ductal dilatation. Chest x-ray June 03: Medial right middle lobe airspace opacity, could represent atelectasis, infection or aspiration. Labs 06/06/24 04:40 06/06/24 04:40 Labs: Laboratory Results - last 24 hr 06/06/24 04:40 WBC 3.8 L RBC 3.16 L Hgb 10.5 L Hct 31.1 L MCV 98.5 MCH 33.2 MCHC 33.7 RDW 16.3 H Plt Count 98 L Neut % (Auto) 47.2 L Lymph % (Auto) 32.5 [place] % (Auto) 8.8 Eos % (Auto) 10.5 H Baso % (Auto) 1.0 Neut # (Auto) 1800 Lymph # (Auto) 1200 [place] # (Auto) 300 Eos # (Auto) 400 Baso # (Auto) 0 Sodium 141 Potassium 4.2 Chloride 110 H Carbon Dioxide 24 BUN 27 H Creatinine 0.95 Estimated GFR > 60 BUN/Creatinine Ratio 28.4 H Glucose 105 Calcium 10.8 H Iron 80 TIBC 250 L % Saturation 32 Transferrin 207 Ferritin 48 TSH 0.561 PFSH Medical History GERD (gastroesophageal reflux disease) Gout Hypothyroidism Diabetic peripheral neuropathy Diabetes type 2, controlled Hypertriglyceridemia Thoracic back pain Venous stasis ulcer Anemia Hypertension Heart murmur, systolic Dermatitis Social History household members: spouse Smoking Status: Former smoker alcohol intake: never Assessment & Plan Assessment & Plan narrative: Acute medical issues. 1. Hepatic encephalopathy, present on admission and improving. 2. Right mid lobe pneumonia, present on admission and improving. 3. Debilitation, present on admission and improving. Stable medical issues, present on admission. Depression Anxiety GERD Dm 2 Hypothyroidism Anemia Gout Falls Plan: -continue lactulose t.i.d. -complete 3 and 5 days of antibiotics, azithromycin and ceftriaxone respectively. -physical therapy evaluation today as he was more awake. INES: 06/07. Full code. Time-Based Coding :: [TOTAL MINUTES] spent with patient and on the chart (including review of chart, obtaining history, exam, reviewing outside data, placing orders, documenting exam and treatment plan, and counseling patient) on [DATE]. Quality VTE Deep Vein Thrombosis/Pulmonary Embolism Present on Admission: No
[2024-06-06] MEDS: AZITHROMYCIN 500 MG in DEXTROSE 5% IN WATER 250 ML 250 MG IV (12:44)
--- NOTE | 2024-06-06 15:15 | CM.DPC ---
DCP SNF Planning: Per MD, pt had multiple bms today which helping increase his alertness and decrease his confusion and per RN pt now able to be 2PA and not vidal at this time as he had been over the weekend. PT was on hold yesterday but to work with pt again today this afternoon. SW met bedside with pt and his brother and explained role and discussed the current SNF recommendation. Pt confirms he has no hx of SNF and both pt and brother confirm pt needs to be able to walk either independently or with min assist before safe to d/c home with spouse. SOL provided the SNF Choice list and currently the preference for SNF is [facility] as spouse does not drive and they live in [place]. SW made initial referral to Mary at [facility] to review to confirm if they can accept pt when stable and PASRR completed. Plan: SW to follow closely in the AM with [facility] SNF to confirm if they can accept and any further identified discharge planning needs. AD Perez
--- NOTE | 2024-06-06 16:01 | PT-IP ANOTE ---
PT checks with nsg who reports that pt has been up several times today. Pt is resting with family nearby and presents pleasantly confused. He wishes to stay in bed until dinner. Will attempt PT efforts earlier next date as schedule allows.
--- NOTE | 2024-06-06 18:42 | PC.NURSE ---
Pt up with vidal lift in AM, to shower with shower chair and assist. Pt able to transfer with 2PA, FWW, gait belt, non-skid footwear. Mentation clearing with frequent loose stools after lactulose. Pt up to chair and BSC frequently, 2PA with ambulation. Pt awake and appropriate.
[2024-06-06] MEDS: GABAPENTIN 300 MG CAPSULE 1200 MG PO (20:23)
[2024-06-06] MEDS: AMITRIPTYLINE 25 MG TABLET PO (20:23)
[2024-06-07] VITALS (30 sets, daily range): BP systolic 126–152; BP diastolic 60–72; PULSE 71–95; RESP 10–25; TEMP 36.5–37.2; O2SAT 91–98
[2024-06-07] MEDS: LEVOTHYROXINE 100 MCG TABLET PO (06:28)
[2024-06-07] MEDS: PANTOPRAZOLE DR 20 MG TABLET PO (06:28)
[2024-06-07] MEDS: FERROUS SULFATE 325 MG TABLET PO (08:22)
[2024-06-07] MEDS: METFORMIN HCL 500 MG TABLET 1000 MG PO ×2 (08:22→17:24)
[2024-06-07] MEDS: allopurinoL 100 MG TABLET 300 MG PO (08:22)
[2024-06-07] MEDS: HEPARIN 5,000 UNIT/ML VIAL 5000 UNIT SUBCUT ×2 (08:22→20:24)
[2024-06-07] MEDS: SODIUM CHLORIDE 0.9% FLUSH 10 ML IV ×2 (08:28→20:24)
[2024-06-07] MEDS: LACTULOSE 20 GM/30 ML SOLUTION 30 GM PO ×2 (09:18→20:24)
--- NOTE | 2024-06-07 09:37 | PM.PN.1 ---
Subjective Subjective Interval history: Summary: He was admitted with AMS felt to represent hepatic encephalopathy and has improved on lactulose t.i.d.. He was mentally 90% back to his baseline. Does, however have persistent weakness which is slowly improving. There is concern from family and staff that he will need shelter facility transition. He will be evaluated by PT and OT today for possible admission to [facility] which is near his home. S: Mentally he feels clear, but still weak. No nausea or abdominal pain. He was having loose stools from the lactulose which is t.i.d.. Exam Vital Signs (past 8 hours): - 06/07/24 02:00 06/07/24 02:30 06/07/24 03:00 Temperature Pulse Rate 83 71 72 Respiratory Rate 25 H 10 L 10 L Blood Pressure Pulse Oximetry Oxygen Flow Rate 06/07/24 03:30 06/07/24 04:00 06/07/24 04:00 Temperature 98.4 F Pulse Rate 82 80 83 Respiratory Rate 20 18 14 Blood Pressure 152/72 H Pulse Oximetry 97 Oxygen Flow Rate 0 06/07/24 04:03 06/07/24 04:03 06/07/24 04:30 Temperature Pulse Rate 79 80 Respiratory Rate 15 13 Blood Pressure 152/72 H Pulse Oximetry 98 Oxygen Flow Rate 06/07/24 05:00 06/07/24 05:30 06/07/24 06:00 Temperature Pulse Rate 77 74 78 Respiratory Rate 11 L 11 L 11 L Blood Pressure Pulse Oximetry Oxygen Flow Rate 06/07/24 06:30 06/07/24 07:00 06/07/24 07:30 Temperature Pulse Rate 83 74 78 Respiratory Rate 17 11 L 11 L Blood Pressure Pulse Oximetry Oxygen Flow Rate 06/07/24 07:57 06/07/24 07:57 06/07/24 08:00 Temperature Pulse Rate 77 75 Respiratory Rate 13 14 Blood Pressure 137/67 Pulse Oximetry Oxygen Flow Rate Oxygen Delivery Method Room Air Oxygen Flow Rate 0 Narrative Exam Narrative: NAD, alert and oriented. Fluent speech. Lungs are clear, normal rate and effort. Heart is regular, no murmur gallop or rub. Abdomen is soft, non distended. Extremities are free of edema. Objective Labs 06/06/24 04:40 06/06/24 04:40 [facility] Medical History GERD (gastroesophageal reflux disease) Gout Hypothyroidism Diabetic peripheral neuropathy Diabetes type 2, controlled Hypertriglyceridemia Thoracic back pain Venous stasis ulcer Anemia Hypertension Heart murmur, systolic Dermatitis Social History household members: spouse Smoking Status: Former smoker alcohol intake: never Assessment & Plan Assessment & Plan narrative: 1. Hepatic encephalopathy, present on admission and improved. 2. Right mid lobe pneumonia, present on admission and improving. 3. Debilitation, present on admission and improving. Stable medical issues, present on admission. Depression Anxiety GERD Dm 2 Hypothyroidism Anemia Gout Falls Plan: -continue lactulose, decreased to b.i.d. from t.i.d. -complete 3 and 5 days of antibiotics, azithromycin and ceftriaxone respectively. -physical therapy evaluation today as he was more awake. Anticipate discharge to shelter facility, [facility]. This will either be today or tomorrow June 08. Time-Based Coding :: [TOTAL MINUTES] spent with patient and on the chart (including review of chart, obtaining history, exam, reviewing outside data, placing orders, documenting exam and treatment plan, and counseling patient) on [DATE]. Quality VTE Deep Vein Thrombosis/Pulmonary Embolism Present on Admission: No
--- NOTE | 2024-06-07 10:10 | OT.IP.EVAL ---
Current Diagnoses Anemia, unspecified (06/03/24) Hypothyroidism, unspecified (06/03/24) Type 2 diabetes mellitus without complications (06/03/24) Depression, unspecified (06/03/24) Gastro-esophageal reflux disease without esophagitis (06/03/24) Hepatic encephalopathy (06/03/24) Past Medical History (Last Reviewed 06/06/24 @ 12:47 by Edu Gaona MD) Anemia Dermatitis Diabetes type 2, controlled Diabetic peripheral neuropathy GERD (gastroesophageal reflux disease) Gout Heart murmur, systolic Hypertension Hypertriglyceridemia Hypothyroidism Thoracic back pain Venous stasis ulcer Occupational Therapy Inpatient Evaluation/Re-Eval M1 PT/OT-IP Prior Functional Status Start: 06/04/24 13:19 Freq: NEEDED Status: Active Protocol: Document 06/07/24 10:38 [facility] (Rec: 06/07/24 10:55 [facility] [id number]) Medical Review Prior Functional Status Medical History Reviewed Yes Communication pt very sleepy; able to answer some questions Mobility and Gait spouse provided most of pt's PLOF and home set up stated that pt was modified independent with all mobilities and ambulation without AD but has started getting weak for the last 2 weeks and was furniture cruising and bouncing off the wall for steadiness. Activities of Daily Living and IADL's Pt states prior to 2 weeks agp able to take care of himself with all ADL,IADL and drives. Social History Household Members spouse Living Arrangements House Number of Floors (Floors) One Floor Number of Stairs To Enter/Railing? ramp to enter Home Environment Standard Height Toilet,Walk in Shower,Ramp Home Equipment Shower Seat with Backrest,Hand Held Shower,Grab Bars In Shower Additional Social History Comment pt's spouse will not be able to assist pt due to her medical conditions M2 OT-IP Current Condition Start: 06/07/24 10:37 Freq: Status: Active Protocol: Document 06/07/24 10:38 [facility] (Rec: 06/07/24 10:55 [facility] [id number]) Occupational Therapy Current Condition Current Condition Evaluation Date 06/07/24 Treatment Diagnosis Hepatic Encephalopathy, PNA Diagnosis Onset Date 06/03/24 M3 OT- IP Subjective and Pain Start: 06/07/24 10:37 Freq: Status: Active Protocol: Document 06/07/24 10:38 [facility] (Rec: 06/07/24 10:55 [facility] [id number]) OT- Subjective Occupational Therapy Visit Type Type Initial Evaluation Visit Start Time 10:10 Visit Stop Time 10:36 Occupational Therapy Visit Comments Patient Comments Pt agreed to get up. Patient/Caregiver Goals To get better. OT Pain Assessment Pain When Pain Assessed At Rest Pain Present Pain Present Denied Pain M4 OT- IP ADL's Start: 06/07/24 10:37 Freq: Status: Active Protocol: Document 06/07/24 10:38 [facility] (Rec: 06/07/24 10:55 [facility] [id number]) OT [id number] Comments OT Self-Feeding Comments Not at meal time, no issues noted. OT ADL-Grooming Comments OT Grooming Comments Per nursing aid performed earlier. OT ADL-Dressing Comments OT Dressing Comments Pt needing MAX A for shoes and socks. OT ADL-Toileting Comments OT Toileting Comments At this time pt would need assist for completeness of hygiene and clothing management due to decreased balance. OT ADL-Bathing Comments OT Bathing Comments Pt will benefit from assist. M5 OT- IP IADL's Start: 06/07/24 10:37 Freq: Status: Active Protocol: Document 06/07/24 10:38 [facility] (Rec: 06/07/24 10:55 [facility] [id number]) OT-Instrumental Activities of Daily Living Deficits IADL Deficits Identified Deficits Home Safety Awareness Awareness of Need for Assistance at Home Good Awareness Ability to Problem Solve Emergency Able to Problem Solve Situations Home Safety Comments Pt needing increased increased time but able to answer all home safety questions with good accuracy. Meal Preparation Meal Preparation Comments Pt will need assist. Composition Weatherboard Installer Composition Weatherboard Installer Comments Pt will need assist. M6 OT- IP Functional Cognition Start: 06/07/24 10:37 Freq: Status: Active Protocol: Document 06/07/24 10:38 [facility] (Rec: 06/07/24 10:55 [facility] [id number]) Cognitive Factors Limiting Selfcare Function Cognitive Ability Level of Alertness Alert Patient Orientation Name,Place,Situation Attention Span Ability Capable of Focused Attention, Capable of Sustained Attention Ability to Follow Commands Able to Follow One Step Commands Safety Awareness Underestimates Need for Assistance Cognitive Comments Cognitive Assessment Comments Pt agrees that he feels like he is in slow motion for movements and thinking at this time. Pt needing safety cues for hand placement to help stand up and to have the FWW in front of him at all times. Pt will benefit from cognitive assessment. OT- Vision and Hearing OT- Hearing Assessment OT- Hearing Assessment WFL OT- Vision Assessment Visual Acuity Glasses All The Time Visual Attentiveness WFL Occular Pursuits WFL Visual Convergence WFL M7 OT- IP Mobility and Balance Start: 06/07/24 10:37 Freq: Status: Active Protocol: Document 06/07/24 10:38 [facility] (Rec: 06/07/24 10:55 [facility] [id number]) OT-Transfer Assessment Sit to and From Stand Sit to and from Stand Maximum Assistance Transfers Transfer Ability Minimal Assistance,Moderate Assistance Technique Transfer Destination Bed,Chair Transfer Technique Stand Step Pivot Devices Transfer Assistive Devices Gait Belt,Front Wheeled Walker Comments Mobility Comments MAX X1 to stand from lower surfaces,MIN/MODA x1 with FWW . VC to keep his legs part. Pt 's right knee valgus and divina at times. OT- Balance Assessment Sitting Balance and Reactions Static Sitting Balance Ability Good Dynamic Sitting Balance Ability Fair Standing Balance and Reactions Static Standing Balance Ability Fair Dynamic Standing Balance Ability Fair M8 OT- IP Objective Assessments Start: 06/07/24 10:37 Freq: Status: Active Protocol: Document 06/07/24 10:38 [facility] (Rec: 06/07/24 10:55 [facility] [id number]) OT Gross Range of Motion Upper Extremity Range of Motion Assessment Bilaterally Impaired OT Strength Upper Extremity Strength Assessment Bilaterally Impaired Comments Strength Comments ELbow to distal 4/5. BUE shoulders 0-95. OT- Coordination Assessment Upper Extremity Finger to Nose Test Within Functional Limits OT Sensation Assessment Comments Summary Comments Intact for light touch, pt needing increased time for word finding. M9 OT- IP Assessment and Plan Start: 06/07/24 10:37 Freq: Status: Active Protocol: Document 06/07/24 10:38 [facility] (Rec: 06/07/24 10:55 [facility] [id number]) OT Summary Assessment and Plan Potential Rehabilitation Potential Good Analytic Complexity at Evaluation Moderate Summary OT Impairments Pain,Range of Motion,Strength, Balance,Functional Cognition, Functional Mobility,Self- Feeding,Grooming,Dressing, Toileting,Bathing,Toilet Transfers,Shower Transfers, Activity Tolerance Progress Towards Goals Slow Progress due to Medical Issues,Slow Progress due to Activity Tolerance,Slow Progress due to Cognition Assessment Summary Pt MOD complexity and main barriers are decreased initiation, processing, weakness, and now needing assist of one person fo all needs. Pt also having decreased safety awareness for FWW use. Pt will greatly benefit from skilled rehab. Goals Self-Feeding Goal Independent Grooming Goal Independent Dressing Goal Independent Toileting Goal Independent Bathing Goal Standby Assistance Toilet Transfer Goal Independent Shower Transfer Goal Standby Assistance Days to Meet Goals 25 Frequency of Treatment Other frequency 5x/week Treatment Plan OT Treatment Plan ADL Training,Functional Cognition Training,Functional Mobility,Patient/Family Education,Discharge Planning Discharge Recommendations OT Discharge Recommendations SNF Rehab Transportation Needs at Discharge Wheelchair/Cabulance
--- NOTE | 2024-06-07 10:14 | PT.IPTN ---
Current Diagnoses Anemia, unspecified (06/03/24) Hypothyroidism, unspecified (06/03/24) Type 2 diabetes mellitus without complications (06/03/24) Depression, unspecified (06/03/24) Gastro-esophageal reflux disease without esophagitis (06/03/24) Hepatic encephalopathy (06/03/24) Physical Therapy Treatment Note M2 PT-IP Current Condition Start: 06/04/24 13:19 Freq: NEEDED Status: Active Protocol: Document 06/04/24 11:50 [facility] (Rec: 06/04/24 13:31 [facility] [id number]) Physical Therapy Current Condition Current Condition Evaluation Date 06/04/24 Treatment Diagnosis hepatic encephalopathy; difficulty in walking Onset Date M3 PT-IP Subjective Start: 06/04/24 13:19 Freq: NEEDED Status: Active Protocol: Document 06/07/24 10:46 [facility] (Rec: 06/07/24 10:58 TS [id number]) Subjective Physical Therapy Visit Type Type Treatment Note Visit Start Time 10:14 Visit Stop Time 10:37 Number of MORTGAGE LOAN REVIEWER Visits 1 Physical Therapy Visit Comments Patient Comments Pt agreeable to PT. M4 PT-IP Mobility and Gait Start: 06/04/24 13:19 Freq: NEEDED Status: Active Protocol: Document 06/07/24 10:46 [facility] (Rec: 06/07/24 10:58 TS [id number]) PT-Transfer Assessment Sit to and From Stand Sit to and from Stand Minimal Assistance,Maximum Assistance,1 Person Assistance ,Use of Upper Extremities Equipment Transfer Assistive Device Gait Belt,Front Wheeled Walker Orthotic/Prosthetic Devices or Brace: No Comments Mobility Comments STS with FWW MaxA from the chair. Pt ambulates ~15' in the room Andrew with cues to maintain hold of FWW and stepping pattern, pt is unsteady with gait. Pt sat on EOB, requires assist to don shoes. STS from the bed Andrew with FWW. He ambulates ~15' Andrew, requires cues for safety and holding onto FWW. Pt sat back in the chair, all needs met. Gait Assessment Gait Gait Assistance Required: Minimum Assistance,1 Person Assist Distance (Feet) 30 Gait Deviations General Gait Pattern Decreased Stride Length, Decreased Feet Clearance,Step- to Gait Factors Limiting Gait Function Factors Limiting Gait Function Decreased Activity Tolerance, Decreased Strength,Difficulty Following Directions,Poor Balance,Poor Safety Awareness PT-Balance Assessment Sitting Balance and Reactions Static Sitting Balance Ability Good Dynamic Sitting Balance Ability Fair Standing Balance and Reactions Static Standing Balance Ability Fair Dynamic Standing Balance Ability Fair Device Used FWW M5 PT-IP Objective Assessments Start: 06/04/24 13:19 Freq: NEEDED Status: Active Protocol: Document 06/04/24 11:50 [facility] (Rec: 06/04/24 13:31 AB [id number]) Orientation Orientation/Cognition Level of Alertness Lethargic Safety Awareness Decreased Safety Awareness Strength Lower Extremity Strength Assessment Bilaterally Impaired Hip 3-/5 Knee 3+/5 Muscle Tone Muscle Tone WNL Yes M6 PT-IP Treatment Start: 06/04/24 13:19 Freq: NEEDED Status: Active Protocol: Document 06/07/24 10:46 TS (Rec: 06/07/24 10:58 TS [id number]) Physical Therapy Treatment Education Education Provided Safety M7 PT-IP Assessment and Plan Start: 06/04/24 13:19 Freq: NEEDED Status: Active Protocol: Document 06/07/24 10:46 TS (Rec: 06/07/24 10:58 TS [id number]) PT Summary Assessment and Plan Potential Rehabilitation Potential Fair Summary Impairments Pain,ROM,Strength,Balance, Coordination,Sensation,Tone, Cognition,Bed Mobility, Transfers,Gait,Activity Tolerance Progress Towards Goals Slow Progress due to Activity Tolerance Assessment Summary Pt is making some progress with his mobility but he is limited by activity tolerance. He requires MaxA to stand from lower surfaces, Andrew from higher surface. He progressed his gait to ~2x15' Andrew. He is unsteady with gait and lacks good safety awareness and management of FWW. Pt has slow movement and is slow to respond to questions. PT is recommending SNF at this time. Goals Bed Mobility Goal Minimal Assistance Transfer Goal Minimal Assistance,Front Wheeled Walker Gait Goal Minimal Assistance,Front Wheel Walker Gait Distance 50 Other Goals improve bed mobility, transfers, ambulation using FWW ~ 150 ft SBA Days to Meet Goals 10 Frequency of Treatment Frequency Of Treatment Once a Day Treatment Plan Physical Therapy Treatment Plan Bed Mobility Training,Transfer Training,Gait Training, Therapeutic Exercise,Balance Retraining,Discharge Planning, Hot or Cold Pack,Neuromuscular Re-ed,Coordination Retraining ,Manual Therapy Precautions Other Precautions falls Recommendations To Nursing Amount of Assist Needed 1 Person Assist Discharge Recommendations PT Discharge Recommendations SNF Rehab Transportation Needs at Discharge Wheelchair/Cabulance
[2024-06-07] MEDS: cefTRIAXone 1,000 MG in SODIUM CHLORIDE 0.9% 100 ML 200 MG IV (11:20)
--- NOTE | 2024-06-07 11:41 | CM.DPC ---
DCP SNF Planning: Per MD, pt continues to make progress and likely ready for d/c to SNF by tomorrow Thu. SOL contacted [facility] admissions and sent updated clinicals and they confirm they can accept pt tomorrow and will work on time of transport. PASRR done. SOL updated MD and will attempt to update pt and family today. AD Perez
[2024-06-07] MEDS: AZITHROMYCIN 500 MG in DEXTROSE 5% IN WATER 250 ML 250 MG IV (12:17)
--- NOTE | 2024-06-07 18:20 | PC.NURSE ---
pt has had a good shift; he is more mobile, requiring 1PA w/ FWW; he does not feel that he is back at his baseline, but does feel that he is improving; pt is for discharge to [facility] tomorrow; status report was given to his via phone
[2024-06-07] MEDS: AMITRIPTYLINE 25 MG TABLET PO (20:24)
[2024-06-07] MEDS: GABAPENTIN 300 MG CAPSULE 1200 MG PO (20:24)
[2024-06-08] VITALS: BP 111/56; PULSE 80; RESP 16; TEMP 37; O2SAT 98
[2024-06-08 04:00] VITALS: BP 134/63; PULSE 95; RESP 21; TEMP 36.2; O2SAT 98
[2024-06-08 05:19] LABS: HBsAg Screen Negative (Negative); Hepatitis A Antibody IgM Negative (Negative); Hepatitis B Core Antibody IgM Negative (Negative); Hepatitis C Antibody Non Reactive (Non Reactive)
[2024-06-08] MEDS: PANTOPRAZOLE DR 20 MG TABLET PO (06:23)
[2024-06-08] MEDS: LEVOTHYROXINE 100 MCG TABLET PO (06:23)
[2024-06-08 07:54] VITALS: BP 148/72; PULSE 80; RESP 17; TEMP 36.9; O2SAT 95
[2024-06-08] MEDS: FERROUS SULFATE 325 MG TABLET PO (08:17)
[2024-06-08] MEDS: METFORMIN HCL 500 MG TABLET 1000 MG PO (08:17)
[2024-06-08] MEDS: HEPARIN 5,000 UNIT/ML VIAL 5000 UNIT SUBCUT (08:17)
[2024-06-08] MEDS: allopurinoL 100 MG TABLET 300 MG PO (08:17)
[2024-06-08] MEDS: LACTULOSE 20 GM/30 ML SOLUTION 30 GM PO (08:18)
[2024-06-08] MEDS: SODIUM CHLORIDE 0.9% FLUSH 10 ML IV (08:19)
--- NOTE | 2024-06-08 10:49 | PM.DS.1 ---
History of Present Illness History of Present Illness Date Patient Seen: 06/08/24 Time Patient Seen: 10:49 Chief complaint: AMS Narrative: Per admitting provider, 73 y/o with PMH of liver cirrhosis, presented after he developed significant disbalance causing him to repeatedly fall, w/o having significant injuries. He became foggy, forgetful, still is, feels confused. ED workup shows hepatic encephalopathy. He was placed in observation for lactulose, PT assessment. He lives with his who is unable to help him get up after he falls. Discharge Providers Provider Date of admission: 06/03/24 18:40 Discharge Date: 06/09/24 Primary care physician: Shital Lindo MD Consults: 06/03/24 20:57 Consult to Physical Therapy Evaluate & Treat Comment: Physician Instructions: Evaluate and Treat 06/07/24 09:19 Consult to Occupational Therapy Evaluate & Treat Comment: Physician Instructions: Evaluate and treat Discharge provider: Mookie Arizmendi DO Summary Hospital Course Discharge Diagnosis: 1. Hepatic encephalopathy, present on admission and improved. 2. Right mid lobe pneumonia, present on admission and improving. 3. Debilitation, present on admission and improving. 4. Cirrhosis Stable medical issues, present on admission. Depression Anxiety GERD Dm 2 Hypothyroidism Anemia [place] Hospital Course: This is a 73 year old male who was admitted with an acute encephalopathy. Ammonia was elevated and RUQ ultrasound showed evidence of cirrhosis. His mentation continued to improve with lactulose. There was a possible PNA noted on initial imaging, and he had a few days of antibiotics (ceftriaxone and azithromycin) in the hospital, and was discharged with another 2 days of levofloxacin to complete full course at discharge. He improved, but not quite to his usual self and he remained weak. PT evaluation recommended SNF, where he was transferred on 06/08/24 for ongoing therapy prior to return home. He should have an outpatient referral to a GI provider for his cirrhosis and further evalutation, and continue lactulose titrated to 2-4 bowel movements daily at the nursing facility. No other changes were recommended to his other chronic medications at this time. Time Spent with Patient Time spent: Greater than 30 minutes Exam Vital Signs (past 8 hours): - 06/08/24 04:00 06/08/24 07:00 06/08/24 07:54 Temperature 97.2 F L 98.5 F Pulse Rate 95 H 80 Respiratory Rate 21 17 Blood Pressure 134/63 148/72 H Pulse Oximetry 98 95 Oxygen Delivery Method Room Air CPAP Oxygen Flow Rate 0 0 Oxygen Delivery Method Room Air,CPAP Oxygen Flow Rate 0 Narrative Exam Narrative: NAD, alert and oriented. Fluent speech. Lungs are clear, normal rate and effort. Heart is regular, no murmur gallop or rub. Abdomen is soft, non distended. Extremities are free of edema. Objective Labs 06/06/24 04:40 06/06/24 04:40 Labs: Laboratory Results - last 24 hr 06/06/24 04:40 Hepatitis A IgM Ab Negative Hep Bs Antigen Negative Hep B Core IgM Ab Negative Hepatitis C Antibody Non reactive Hep C Ab Signal/Cutoff Comment [facility] Medical History GERD (gastroesophageal reflux disease) Gout Hypothyroidism Diabetic peripheral neuropathy Diabetes type 2, controlled Hypertriglyceridemia Thoracic back pain Venous stasis ulcer Anemia Hypertension Heart murmur, systolic Dermatitis Social History household members: spouse Smoking Status: Former smoker alcohol intake: never Discharge Plan Discharge Plan Patient Disposition: SNF Transfer to: [facility] Provider Discharge Comment: Patient was admitted with hepatic encephalopathy and possible PNA. Improved with lactulose. Continue 2 more days of antibiotics after discharge for completion of treatment for possible PNA. [facility] due to deconditioning from the above problems. Discharge orders & Medications Prescriptions: New lactulose 10 gram/15 mL Solution 20 g PO BID 30 Days Qty: 946 0RF levofloxacin 750 mg tablet 750 mg PO DAILY 2 Days Qty: 2 0RF Continued Suflave 178.7-7.3-0.5 gram recon soln 1,000 ml PO DIRECTED Qty: 2000 0RF Rx Instructions: take as directed by Physician hydroxyzine HCl 25 mg tablet 25 mg PO BEDTIME PRN (Reason: Sleep) ferrous sulfate 325 mg (65 mg iron) tablet 325 mg PO DAILY atorvastatin 40 mg tablet 40 mg PO DAILY metformin 500 mg tablet 1,000 mg PO BID allopurinol 300 mg tablet 300 mg PO DAILY omeprazole 20 mg capsule,delayed release(DR/EC) 20 mg PO DAILY amitriptyline 25 mg tablet 25 mg PO DAILY gabapentin 300 mg capsule 1,200 mg PO BEDTIME levothyroxine 100 mcg capsule 100 mcg PO DAILY glipizide 5 mg tablet 5 mg PO BID tramadol 50 mg tablet 50 mg PO Q6H PRN (Reason: Pain (Scale Score 4-6)) 7 Days Qty: 20 0RF Follow up/Referrals: Shital Lindo MD [Primary Care Provider] - Discharge Health Status Multidrug resistant organism: No MDRO Precautions: [place] Diet/Activity/Treatments Diet: Diet as Tolerated and Low-sodium Activity: As tolerated, no restrictions. Special Rehabilitation Services Reason for rehabilitation: Recovery r/t decondition Rehab type: Physical therapy and Occupational therapy Visit Report/Discharge Packet Stand Alone Forms: Patient Portal/API Discharge Data Primary Care Provider: Shital Lindo Quality VTE Deep Vein Thrombosis/Pulmonary Embolism Present on Admission: No
--- NOTE | 2024-06-08 12:42 | PC.NURSE ---
[id number] Attempted to call report to [facility], pt to transport at 1300, left message for [facility] to return call to [phone]
--- NOTE | 2024-06-08 13:38 | CM.DPNOTE ---
Addendum entered by AD Briseno 06/08/24 13:43: ADD: Hospital exempt PASRR was not faxed to Patricia De Santiago, PASRR statistical consultant. Patient's SNF packet is en route to [facility]. Placed call to Patricia De Santiago, had to LM updating her on patient's discharge. Updated Mary at [facility]. NGUYEN Original Note: DC Note Discharge to [facility] today; facility [facility] arranged for flower buncher or picker at 1300. Hospital exempt PASRR completed due to patient's depression; signed by Dr Arizmendi. Sulma Carpenter CMA, assisting with this coordination. All DC ppk emailed to Mary at [facility]. Patient and family remain agreeable to this plan. Plan: Discharge to [facility] via facility [facility]. NGUYEN
== END 2024-06-08 13:20 | DRG 441 ==
LOC: ED 18:41 → AC 18:41 → ICU 19:02
PROVIDERS: Internal Medicine; Admitting Provider Hospitalist; Emergency Provider Emergency Medicine; PCP Internal Medicine; Referring Provider Student in an Organized Health Care Education/Training Program; Visit Provider Hospitalist
DX: K76.82 Hepatic encephalopathy (principal); J18.9 Pneumonia, unspecified organism; K74.60 Unspecified cirrhosis of liver; R26.89 Other abnormalities of gait and mobility; F32.A Depression, unspecified; K21.9 Gastro-esophageal reflux disease without esophagitis; E11.9 Type 2 diabetes mellitus without complications; E03.9 Hypothyroidism, unspecified; D64.9 Anemia, unspecified; F41.9 Anxiety disorder, unspecified; M10.9 Gout, unspecified; E78.1 Pure hyperglyceridemia; R53.81 Other malaise; Z91.81 History of falling; Z87.891 Personal history of nicotine dependence; Z79.84 Long term (current) use of oral hypoglycemic drugs
CPT/HCPCS: 36415; 71045; 76705; 80048; 80053; 80074; 80305; 80320; 81001; 82140; 82728; 82962; 83540; 83550; 83690; 83735; 84443; 85025; 87797; 93005; 93010; 97116; 97163; 97166; 97530; 99284; A9270; J0696; J1644